=== PATIENT | female | born 1945 | race African-American/Black ===

== ENCOUNTER → 2016-11-30 | Outpatient (CLI) | payer BC, MEDICARE ==
--- NOTE | 2016-11-30 11:33 | RAD ---
DATE: 11/30/2016 EXAM: DIGITAL SCREEN BILAT W/CAD HISTORY: Screening COMPARISON: 09/05/2015 This study was interpreted with the benefit of Computerized Aided Detection (CAD). FINDINGS: Breast Density: SCATTERED The breast parenchyma shows scattered fibroglandular densities. Breast parenchyma level B. There has been little change in the appearance of the breasts compared to the previous exam IMPRESSION: Benign finding BI-RADS CATEGORY: 2 BENIGN FINDING(S) RECOMMENDED FOLLOW-UP: 12M 12 MONTH FOLLOW-UP PQRS compliance statement: Patient information was entered into a reminder system with a target due date 11/30/2017 for the next mammogram. Mammography is a sensitive method for finding small breast cancers, but it does not detect them all and is not a substitute for careful clinical examination. A negative mammogram does not negate a clinically suspicious finding and should not result in delay in biopsying a clinically suspicious abnormality. "Our facility is accredited by the [employer] Mammography [employer]."
== END | disposition home or self-care (01) ==
LOC: MAMMO 11:02
PROVIDERS: ATTEND Internal Medicine
DX: Z12.31 Encounter for screening mammogram for malignant neoplasm of breast (principal)
CPT/HCPCS: G0202; 77067

== ENCOUNTER 2017-07-01 15:32 | Inpatient (IN) | payer MEDICARE, BC ==
[2017-07-01 17:23] LABS: ADD MAN DIFF? NO
[2017-07-01 17:28] LABS: BASO % 1 % (0-3); EOS % 1 % (0-3); HEMATOCRIT 33.9 % (36.0-47.0); LYMPH # 1.1 x10^3/uL (1.0-4.8); LYMPH % 34 % (24-48); MEAN CORPUSCULAR HEMOGLOBIN 28 pg (25-35); MEAN CORPUSCULAR HGB CONC 32 g/dL (31-37); MEAN CORPUSCULAR VOLUME 88 fL (79-100); MONO # 0.3 x10^3/uL (0.0-1.1); MONO % 10 % (0-9); NEUT # 1.7 x10^3uL (1.8-7.7); NEUT % 54 % (31-73); PLATELET COUNT 193 x10^3/uL (140-400); RED BLOOD COUNT 3.86 x10^6/uL (3.50-5.40); RED CELL DISTRIBUTION WIDTH 14.1 % (11.5-14.5); WHITE BLOOD COUNT 3.2 x10^3/uL (4.0-11.0)
[2017-07-01 17:36] LABS: INR 1.2 (0.8-1.1); PROTHROMBIN TIME PATIENT 14.4 SEC (11.7-14.0)
[2017-07-01 17:54] LABS: ALBUMIN 3.2 g/dL (3.4-5.0); ALBUMIN/GLOBULIN RATIO 0.7 (1.0-1.7); ALK PHOS 67 U/L (46-116); ALT (SGPT) 16 U/L (14-59); ANION GAP 8 (6-14); AST (SGOT) 23 U/L (15-37); BLOOD UREA NITROGEN 13 mg/dL (7-20); BUN/CREATININE RATIO 11 (6-20); CALCIUM 9.4 mg/dL (8.5-10.1); CARBON DIOXIDE 27 mmol/L (21-32); CHLORIDE 107 mmol/L (98-107); CREATININE 1.2 mg/dL (0.6-1.0); GFR 53.1; GLUCOSE 80 mg/dL (70-99); POTASSIUM 3.7 mmol/L (3.5-5.1); SODIUM 142 mmol/L (136-145); TOTAL BILIRUBIN 0.5 mg/dL (0.2-1.0); TOTAL PROTEIN 7.6 g/dL (6.4-8.2)
[2017-07-01] MEDS ORDERED: FUROSEMIDE 40 MG TABLET. PO (19:00)
[2017-07-01] MEDS ORDERED: ANTI-COAG MONITOR BY PHARMACY. MC (20:15)
[2017-07-01] MEDS: ASPIRIN CHEWABLE 81 MG TABLET. PO (22:27)
[2017-07-01] MEDS: cloNIDine HCL 0.1 MG TABLET PO (22:27)
[2017-07-01] MEDS: CEPHALEXIN 250 MG CAPSULE. PO (22:28)
[2017-07-02] MEDS ORDERED: NON FORMULARY ITEM (Nifedipine (Nifedipine Er) 90 MG) PO (09:00)
[2017-07-02] MEDS: METOPROLOL SUCC 24HR ER 100 MG TAB.ER.24H. PO (09:00)
[2017-07-02] MEDS: amLODIPine BESYLATE 5 MG TABLET PO (09:18)
[2017-07-02] MEDS: DOXAZOSIN MESYLATE 4 MG TABLET. PO (09:19)
[2017-07-02] MEDS: COLCHICINE 0.6 MG TABLET PO (09:19)
[2017-07-02] MEDS: CEPHALEXIN 250 MG CAPSULE. PO (09:19)
[2017-07-02] MEDS: CHOLECALCIFEROL (VITAMIN D3) 1,000 UNIT TABLET PO (09:20)
[2017-07-02] MEDS: cloNIDine HCL 0.1 MG TABLET PO ×2 (09:20→21:29)
[2017-07-02] MEDS: LOSARTAN POTASSIUM 50 MG TABLET. PO (09:20)
[2017-07-02] MEDS: ASPIRIN CHEWABLE 81 MG TABLET. PO (21:28)
[2017-07-03] MEDS: METOPROLOL SUCC 24HR ER 100 MG TAB.ER.24H. PO (08:54)
[2017-07-03] MEDS: LOSARTAN POTASSIUM 50 MG TABLET. PO (08:55)
[2017-07-03] MEDS: CHOLECALCIFEROL (VITAMIN D3) 1,000 UNIT TABLET PO (08:55)
[2017-07-03] MEDS: cloNIDine HCL 0.1 MG TABLET PO ×2 (08:56→20:55)
[2017-07-03] MEDS: COLCHICINE 0.6 MG TABLET PO (08:56)
[2017-07-03] MEDS: amLODIPine BESYLATE 5 MG TABLET PO (09:00)
[2017-07-03] MEDS ORDERED: hydrALAZINE 25 MG TABLET PO (15:45)
[2017-07-03] MEDS: hydrALAZINE 20 MG/ML VIAL. IVP (15:53)
[2017-07-03] MEDS: ASPIRIN CHEWABLE 81 MG TABLET. PO (20:54)
[2017-07-03] MEDS: DOXAZOSIN MESYLATE 4 MG TABLET. PO (20:55)
[2017-07-04] MEDS: COLCHICINE 0.6 MG TABLET PO (08:50)
[2017-07-04] MEDS: cloNIDine HCL 0.1 MG TABLET PO (08:50)
[2017-07-04] MEDS: LOSARTAN POTASSIUM 50 MG TABLET. PO (08:50)
[2017-07-04] MEDS: METOPROLOL SUCC 24HR ER 100 MG TAB.ER.24H. PO (08:51)
[2017-07-04] MEDS: CHOLECALCIFEROL (VITAMIN D3) 1,000 UNIT TABLET PO (08:51)
[2017-07-04] MEDS: amLODIPine BESYLATE 5 MG TABLET PO (08:51)
[2017-07-04 09:53] LABS: ADD MAN DIFF? NO
[2017-07-04 10:05] LABS: BASO % 1 % (0-3); EOS % 0 % (0-3); HEMATOCRIT 35.8 % (36.0-47.0); HEMOGLOBIN 11.5 g/dL (12.0-15.5); LYMPH # 1.3 x10^3/uL (1.0-4.8); LYMPH % 39 % (24-48); MEAN CORPUSCULAR HEMOGLOBIN 28 pg (25-35); MEAN CORPUSCULAR HGB CONC 32 g/dL (31-37); MEAN CORPUSCULAR VOLUME 88 fL (79-100); MONO # 0.3 x10^3/uL (0.0-1.1); MONO % 9 % (0-9); NEUT # 1.7 x10^3uL (1.8-7.7); NEUT % 51 % (31-73); PLATELET COUNT 218 x10^3/uL (140-400); RED BLOOD COUNT 4.07 x10^6/uL (3.50-5.40); RED CELL DISTRIBUTION WIDTH 14.5 % (11.5-14.5); WHITE BLOOD COUNT 3.3 x10^3/uL (4.0-11.0)
[2017-07-04 10:20] LABS: ANION GAP 12 (6-14); BLOOD UREA NITROGEN 16 mg/dL (7-20); CALCIUM 9.9 mg/dL (8.5-10.1); CARBON DIOXIDE 25 mmol/L (21-32); CHLORIDE 107 mmol/L (98-107); CREATININE 1.2 mg/dL (0.6-1.0); GFR 53.1; GLUCOSE 90 mg/dL (70-99); POTASSIUM 3.6 mmol/L (3.5-5.1); SODIUM 144 mmol/L (136-145)
[2017-07-04] MEDS: FUROSEMIDE 40 MG TABLET. PO (10:38)
[2017-07-04] MEDS ORDERED: APIXABAN 5 MG TABLET. PO ×2 (19:00→20:00)
== END 2017-07-04 13:40 | disposition home or self-care (01) | DRG 300 ==
LOC: 5 SOUTH 15:32
DX: I82.4Z1 Acute embolism and thrombosis of unspecified deep veins of right distal lower extremity (principal); I13.0 Hypertensive heart and chronic kidney disease with heart failure and stage 1 through stage 4 chronic kidney disease, or unspecified chronic kidney disease; I50.9 Heart failure, unspecified; E78.5 Hyperlipidemia, unspecified; I16.0 Hypertensive urgency; M10.9 Gout, unspecified; N18.9 Chronic kidney disease, unspecified; Z82.49 Family history of ischemic heart disease and other diseases of the circulatory system
CPT/HCPCS: 36415; 71046; 71250; 80048; 80053; 85025; 85610; 93005; 93971; J0360; J1650

== ENCOUNTER → 2017-07-01 | Outpatient (CLI) | payer BC | END | disposition home or self-care (01) | LOC: US 13:29 | DX: I82.491 Acute embolism and thrombosis of other specified deep vein of right lower extremity (principal) | CPT/HCPCS: 93971 ==

== ENCOUNTER → 2017-12-07 | Outpatient (CLI) | payer BC, MEDICARE ==
[2017-07-04 10:00] VITALS: BP 139/93
[~2017-12-07] MED LIST: AMLO5TAB7 PO; APIX5TAB PO; ASPI-630 PO; CEPH-264 PO; CHOL10003 PO; CLON0.1T PO; COLC0.6T34 PO; DOXA8TAB59 PO; FURO40TA4 PO; METO-247 PO; NIFE30TA15 PO; VALS320T2 PO
--- NOTE | 2017-12-07 15:58 | RAD ---
DATE: 12/07/2017 EXAM: MAMMO PASCUAL SCREENING BILATERAL HISTORY: Routine screening COMPARISON: 11/30/2016 This study was interpreted with the benefit of Computerized Aided Detection (CAD). Breast Density: SCATTERED The breast parenchyma shows scattered fibroglandular densities. Breast parenchyma level B. FINDINGS: 2-D and 3-D tomosynthesis imaging was performed in CC and MLO projections. No new or enlarging breast densities are seen. Benign type calcifications are present. No suspicious microcalcifications have developed. IMPRESSION: Stable mammograms without evidence of malignancy. BI-RADS CATEGORY: 2 BENIGN FINDING(S) RECOMMENDED FOLLOW-UP: 12M 12 MONTH FOLLOW-UP PQRS compliance statement: Patient information was entered into a reminder system with a target due date for the next mammogram. Mammography is a sensitive method for finding small breast cancers, but it does not detect them all and is not a substitute for careful clinical examination. A negative mammogram does not negate a clinically suspicious finding and should not result in delay in biopsying a clinically suspicious abnormality. "Our facility is accredited by the [employer] Mammography [employer]."
== END | disposition home or self-care (01) ==
LOC: MAMMO 14:07
PROVIDERS: ATTEND Internal Medicine
DX: Z12.31 Encounter for screening mammogram for malignant neoplasm of breast (principal); I13.0 Hypertensive heart and chronic kidney disease with heart failure and stage 1 through stage 4 chronic kidney disease, or unspecified chronic kidney disease; I50.9 Heart failure, unspecified; N18.4 Chronic kidney disease, stage 4 (severe); E78.5 Hyperlipidemia, unspecified; M10.9 Gout, unspecified; Z82.49 Family history of ischemic heart disease and other diseases of the circulatory system
CPT/HCPCS: 77063; 77067

== ENCOUNTER → 2018-01-04 | Outpatient (CLI) | payer BC, MEDICARE ==
[2017-07-04 10:00] VITALS: BP 139/93
--- NOTE | 2018-01-04 13:31 | RAD ---
EXAM: Right lower extremity venous Doppler sonogram. HISTORY: DVT. TECHNIQUE: Pineda scale and color Doppler sonographic evaluation of the right lower extremity veins with spectral waveform analysis was performed. FINDINGS: There is nonocclusive thrombus within the right common femoral, superficial femoral, popliteal and posterior tibial veins. The greater saphenous vein is patent. IMPRESSION: Nonocclusive right lower extremity deep venous thrombosis. This was described on a prior study dated 07/01/2017. The previously demonstrated superficial venous most involving the greater saphenous vein is no longer seen. Electronically signed by: Danika Barr MD (01/04/2018 1:28 PM) [place] [id number]
== END | disposition home or self-care (01) ==
LOC: US 12:53
PROVIDERS: ATTEND Internal Medicine
DX: I82.401 Acute embolism and thrombosis of unspecified deep veins of right lower extremity (principal)
CPT/HCPCS: 93971

== ENCOUNTER 2018-05-26 17:55 | Emergency (ER) | payer BC ==
[~2018-05-26] VITALS: Ht 157.5 cm; Wt 80.7 kg
[~2018-05-26 17:55] MED LIST changes: +AMLO5TAB10 PO; -AMLO5TAB7 PO
[2018-05-26 19:17] VITALS: BP 213/98
--- NOTE | 2018-05-26 20:55 | RAD ---
Clinical indications: Right upper extremity pain. History of right leg DVT in December 2017. Findings: Duplex sonography (including mendoza scale evaluation and color flow and waveform spectral analysis) of the inferior aspect of the right internal jugular vein was performed. Duplex sonography (including mendoza scale evaluation and color flow and waveform spectral analysis) of the right subclavian vein as far as it could be visualized prior to it's descent underneath the medial aspect of the clavicle was performed. Duplex sonography (including mendoza scale evaluation and color flow and waveform spectral analysis) of the right axillary, brachial, basilic, cephalic, ulnar and radial veins was performed. Normal compressibility and augmentation of color Doppler flow after forearm compression is seen. Color-flow completely fills the lumen of these veins. Therefore, there are no sonographic findings of deep venous thrombosis within these veins. Impression: There are no sonographic findings of deep venous thrombosis within the veins discussed above of the right upper extremity. Electronically signed by: Preston Banerjee MD (05/26/2018 8:53 PM) [facility]
--- NOTE | 2018-05-26 21:39 | PHYS DOC ---
Past Medical History Past Medical History: DVT, Hypertension (MARLA SALVADOR APRN) Past Surgical History: Hysterectomy Additional Past Surgical Histo: CARPAL TUNNEL (MARLA SALVADOR APRN) Adult General Chief Complaint Chief Complaint: UPPER EXTREMITY PAIN HPI HPI Patient is a 73 year old female who presents with pain in her right shoulder. She states she has a history of blood clots and is worried she might have formed one. She states the pain is worse with movement. (MARLA SALVADOR APRN) Review of Systems Review of Systems Constitutional: Denies fever or chills [] Respiratory: Denies cough or shortness of breath [] Cardiovascular: No additional information not addressed in HPI [] GI: Denies abdominal pain, nausea, vomiting, bloody stools or diarrhea [] : Denies dysuria or hematuria [] Musculoskeletal: See HPI Integument: Denies rash or skin lesions [] Neurologic: Denies headache, focal weakness or sensory changes [] Endocrine: Denies polyuria or polydipsia [] All other systems were reviewed and found to be within normal limits, except as documented in this note. (MARLA SALVADOR APRN) Allergies Allergies Allergies Coded Allergies Type Severity Reaction Last Updated Verified Sulfa (Sulfonamide Antibiotics) Allergy Severe 07/01/17 Yes (ALLI ENGLISH MD) Physical Exam Physical Exam Constitutional: Well developed, well nourished, no acute distress, non-toxic appearance. [] Cardiovascular:Heart rate regular rhythm, no murmur [] Lungs & Thorax: Bilateral breath sounds clear to auscultation [] Abdomen: Bowel sounds normal, soft, no tenderness, no masses, no pulsatile masses. [] Skin: Warm, dry, no erythema, no rash. [] Back: No tenderness, no CVA tenderness. [] Extremities: tenderness to shoulder with movement, no discoloration of arm, pulses and sensation are intact distally, no cyanosis, no clubbing, ROM intact, no edema. [] Neurologic: Alert and oriented X 3, normal motor function, normal sensory function, no focal deficits noted. [] Psychologic: Affect normal, judgement normal, mood normal. [] (MARLA SALVADOR APRN) EKG EKG [] (MARLA SALVADOR APRN) Radiology/Procedures Radiology/Procedures [][facility] [address] [place] [address] IMAGING REPORT Signed PATIENT: DION TALAVERA ACCOUNT: [id number] : 1945 LOCATION: ER AGE: 73 SEX: F EXAM STATUS: REG ER ORD. PHYSICIAN: MARLA SALVADOR APRN REASON: RUE PAIN, HX OF DVT RT LEG DEC 2017 PROCEDURE: VENOUS UPPER EXTREMITY RIGHT Clinical indications: Right upper extremity pain. History of right leg DVT in December 2017. Findings: Duplex sonography (including mendoza scale evaluation and color flow and waveform spectral analysis) of the inferior aspect of the right internal jugular vein was performed. Duplex sonography (including mendoza scale evaluation and color flow and waveform spectral analysis) of the right subclavian vein as far as it could be visualized prior to it's descent underneath the medial aspect of the clavicle was performed. Duplex sonography (including mendoza scale evaluation and color flow and waveform spectral analysis) of the right axillary, brachial, basilic, cephalic, ulnar and radial veins was performed. Normal compressibility and augmentation of color Doppler flow after forearm compression is seen. Color-flow completely fills the lumen of these veins. Therefore, there are no sonographic findings of deep venous thrombosis within these veins. Impression: There are no sonographic findings of deep venous thrombosis within the veins discussed above of the right upper extremity. Electronically signed by: Korey Banerjee MD (05/26/2018 8:53 PM) [facility] DICTATED and SIGNED BY: KOREY BANERJEE MD DATE: 05/26/182052 [facility] [address] [place] [address] IMAGING REPORT Signed PATIENT: DION TALAVERA ACCOUNT: [id number] : 1945 LOCATION: ER AGE: 73 SEX: F EXAM STATUS: DEP ER ORD. PHYSICIAN: MARLA SALVADOR APRN REASON: worsening pain PROCEDURE: SHOULDER 2+V RIGHT Three-view right shoulder dated 05/26/2018. No comparison available. Clinical indication: Pain. FINDINGS: 3 views right shoulder show normal bony alignment. No displaced fracture. There are small corticated bone fragments along the lateral margin of the humeral head. Mild degenerative change at the AC joint mild degenerative change of the glenohumeral joint. IMPRESSION: 1. No acute radiographic abnormality. 2. Degenerative changes as described above. 3. Small bone fragments along the lateral margin of the humeral head could be related to calcific tendinosis or calcific bursitis. Electronically signed by: Tino Oseguera MD (05/27/2018 1:24 AM) [facility] [place] DICTATED and SIGNED BY: TINO OSEGUERA MD DATE: 05/27/18 0124 (MARLA SALVADOR APRN) Course & Med Decision Making Course & Med Decision Making Pertinent Labs and Imaging studies reviewed. (See chart for details) []The patient is negative for a DVT. She does have arthritis. (MARLA SALVADOR APRN) Course & Med Decision Making Staff Physician Addendum: I was working in the ER during the course of this patient's visit. I was available for consultation as needed, but I was not directly involved in the care of this patient. (ALLI ENGLISH MD) Dragon Disclaimer Dragon Disclaimer This electronic medical record was generated, in whole or in part, using a voice recognition dictation system. (MARLA SALVADOR APRN) Departure Departure Impression: Primary Impression: Arthritis pain of shoulder Disposition: HOME, SELF-CARE Condition: STABLE Referrals: SEVEN GONZALEZ MD (PCP) Patient Instructions: Arthritis, Degenerative-Brief Additional Instructions: You may use ibuprofen or Tylenol for pain. Biofreeze or icy hot patches will help with pain as well. Follow-up with your primary care provider in 3 days if not improving or return to the emergency department if worsening. MARLA SALVADOR APRN May 26, 2018 21:39 ALLI ENGLISH MD Aug 20, 2018 18:13
--- NOTE | 2018-05-27 01:27 | RAD ---
Three-view right shoulder dated 05/26/2018. No comparison available. Clinical indication: Pain. FINDINGS: 3 views right shoulder show normal bony alignment. No displaced fracture. There are small corticated bone fragments along the lateral margin of the humeral head. Mild degenerative change at the AC joint mild degenerative change of the glenohumeral joint. IMPRESSION: 1. No acute radiographic abnormality. 2. Degenerative changes as described above. 3. Small bone fragments along the lateral margin of the humeral head could be related to calcific tendinosis or calcific bursitis. Electronically signed by: Tino Oseguera MD (05/27/2018 1:24 AM) [facility]
== END 2018-05-26 22:05 | disposition home or self-care (01) ==
LOC: ER 17:55
DX: M19.011 Primary osteoarthritis, right shoulder (principal); M79.641 Pain in right hand; I10 Essential (primary) hypertension; Z90.710 Acquired absence of both cervix and uterus; Z86.718 Personal history of other venous thrombosis and embolism; Z88.2 Allergy status to sulfonamides
CPT/HCPCS: 73030; 93971; 99284

== ENCOUNTER 2020-01-16 17:39 | Inpatient (IN) | payer MEDICARE, BC ==
[~2020-01-16] VITALS: Ht 157.5 cm; Wt 61.1 kg
[~2020-01-16 17:39] MED LIST changes: +AMLO-186 PO; -AMLO5TAB10 PO
[2020-01-16 18:19] LABS: BASO % 1 % (0-3); EOS % 0 % (0-3); HEMATOCRIT 37.1 % (36.0-47.0); HEMOGLOBIN 12.1 g/dL (12.0-15.5); LYMPH # 0.8 x10^3/uL (1.0-4.8); LYMPH % 32 % (24-48); MEAN CORPUSCULAR HEMOGLOBIN 29 pg (25-35); MEAN CORPUSCULAR HGB CONC 33 g/dL (31-37); MEAN CORPUSCULAR VOLUME 88 fL (79-100); MONO # 0.2 x10^3/uL (0.0-1.1); MONO % 8 % (0-9); NEUT # 1.4 x10^3/uL (1.8-7.7); NEUT % 59 % (31-73); PLATELET COUNT 96 x10^3/uL (140-400); RED BLOOD COUNT 4.23 x10^6/uL (3.50-5.40); RED CELL DISTRIBUTION WIDTH 14.6 % (11.5-14.5); WHITE BLOOD COUNT 2.5 x10^3/uL (4.0-11.0)
[2020-01-16 18:29] LABS: CALCIUM 10.2 mg/dL (8.5-10.1); CREATININE 3.4 mg/dL (0.6-1.0); GFR 15.9; POTASSIUM 4.6 mmol/L (3.5-5.1)
[2020-01-16] MEDS ORDERED: IV NORMAL SALINE 1000ML BAG 1,000 ML IV ONE (18:30)
[2020-01-16 18:35] LABS: ALBUMIN 3.5 g/dL (3.4-5.0); ALBUMIN/GLOBULIN RATIO 0.8 (1.0-1.7); TOTAL BILIRUBIN 0.6 mg/dL (0.2-1.0)
--- NOTE | 2020-01-16 18:58 | PHYS DOC ---
Past Medical History Past Medical History: DVT, Hypertension, Renal Disease Past Surgical History: Hysterectomy Additional Past Surgical Histo: CARPAL TUNNEL Smoking Status: Never Smoker Alcohol Use: None General Adult EDM: Chief Complaint: ABNORMAL LABS HPI: HPI: Patient is a 74 year old female presents for evaluation of abnormal labs. Patient had outpatient labs by her primary care physician sent to the emergency department due to low white blood cell count elevated creatinine and elevated uric acid. Patient states over the 2 weeks she has become progressively weaker. States she has had a decreased appetite and lost weight. Patient also states 6 months ago her blood pressure medications were changed and since she has had episodes of hypotension-- 70/80-systolic with associated di zziness. Patients blood pressure in triage was 84/56. Patient denies any chest pain shortness of breath or cough. States over the last month she has had sinus congestion with post nasal drip. Patient presented to the ER by private vehicle she is alert and oriented x4. Review of Systems: Review of Systems: Constitutional: Denies fever or chills. [] Eyes: Denies change in visual acuity. [] HENT: Denies nasal congestion or sore throat. [] Respiratory: Denies cough or shortness of breath. [] Cardiovascular: Denies chest pain or edema. [] GI: Denies abdominal pain, nausea, vomiting, bloody stools or diarrhea. [] : Denies dysuria. [] Musculoskeletal: Denies back pain or joint pain. [] Integument: Denies rash. [] Neurologic: Denies headache, focal weakness or sensory changes. [] Endocrine: Denies polyuria or polydipsia. [] Lymphatic: Denies swollen glands. [] Psychiatric: Denies depression or anxiety. [] Heart Score: Risk Factors: Risk Factors: DM, Current or recent (<one month) smoker, HTN, HLP, family history of CAD, obesity. Risk Scores: Score 0 - 3: 2.5% MACE over next 6 weeks - Discharge Home Score 4 - 6: 20.3% MACE over next 6 weeks - Admit for Clinical Observation Score 7 - 10: 72.7% MACE over next 6 weeks - Early Invasive Strategies Current Medications: Current Medications Medications (Trade) Dose Ordered Sig/Jordon Start Time Stop Time Status Last Admin Dose Admin Sodium Chloride 1,000 ml @ 1,000 mls/hr 1X ONCE 01/16/20 18:30 01/16/20 19:29 01/16/20 18:23 1,000 MLS/HR Allergies: Allergies: Allergies Coded Allergies Type Severity Reaction Last Updated Verified Sulfa (Sulfonamide Antibiotics) Allergy Severe 07/01/17 Yes Physical Exam: PE: Constitutional: Well developed, well nourished, no acute distress, non-toxic appearance. [] HENT: Normocephalic, atraumatic, bilateral external ears normal, oropharynx moist, no oral exudates, nose normal. [] Eyes: PERRLA, EOMI, conjunctiva normal, no discharge. [] Neck: Normal range of motion, no tenderness, supple, no stridor. [] Cardiovascular:Heart rate regular rhythm, no murmur [] Lungs & Thorax: Bilateral breath sounds clear to auscultation [] Abdomen: Bowel sounds normal, soft, no tenderness, no masses, no pulsatile masses. [] Skin: Warm, dry, no erythema, no rash. [] Back: No tenderness, no CVA tenderness. [] Extremities: No tenderness, no cyanosis, no clubbing, ROM intact, no edema. [] Neurologic: Alert and oriented X 3, normal motor function, normal sensory function, no focal deficits noted. [] Psychologic: Affect normal, judgement normal, mood normal. [] Current Patient Data: Labs: Laboratory Tests Test 01/16/20 18:00 White Blood Count 2.5 x10^3/uL (4.0-11.0) L Red Blood Count 4.23 x10^6/uL (3.50-5.40) Hemoglobin 12.1 g/dL (12.0-15.5) Hematocrit 37.1 % (36.0-47.0) Mean Corpuscular Volume 88 fL (79-100) Mean Corpuscular Hemoglobin 29 pg (25-35) Mean Corpuscular Hemoglobin Concent 33 g/dL (31-37) Red Cell Distribution Width 14.6 % (11.5-14.5) H Platelet Count 96 x10^3/uL (140-400) L Neutrophils (%) (Auto) 59 % (31-73) Lymphocytes (%) (Auto) 32 % (24-48) Monocytes (%) (Auto) 8 % (0-9) Eosinophils (%) (Auto) 0 % (0-3) Basophils (%) (Auto) 1 % (0-3) Neutrophils # (Auto) 1.4 x10^3/uL (1.8-7.7) L Lymphocytes # (Auto) 0.8 x10^3/uL (1.0-4.8) L Monocytes # (Auto) 0.2 x10^3/uL (0.0-1.1) Eosinophils # (Auto) 0.0 x10^3/uL (0.0-0.7) Basophils # (Auto) 0.0 x10^3/uL (0.0-0.2) Sodium Level 136 mmol/L (136-145) Potassium Level 4.6 mmol/L (3.5-5.1) Chloride Level 101 mmol/L (98-107) Carbon Dioxide Level 18 mmol/L (21-32) L Anion Gap 17 (6-14) H Blood Urea Nitrogen 52 mg/dL (7-20) H Creatinine 3.4 mg/dL (0.6-1.0) H Estimated GFR (Cockcroft-Gault) 15.9 BUN/Creatinine Ratio 15 (6-20) Glucose Level 105 mg/dL (70-99) H Calcium Level 10.2 mg/dL (8.5-10.1) H Total Bilirubin 0.6 mg/dL (0.2-1.0) Aspartate Amino Transferase (AST) 74 U/L (15-37) H Alanine Aminotransferase (ALT) 53 U/L (14-59) Alkaline Phosphatase 116 U/L (46-116) Troponin I Quantitative < 0.017 ng/mL (0.000-0.055) Total Protein 8.0 g/dL (6.4-8.2) Albumin 3.5 g/dL (3.4-5.0) Albumin/Globulin Ratio 0.8 (1.0-1.7) L Laboratory Tests 01/16/20 18:00 Laboratory Tests 01/16/20 18:00 Vital Signs: Vital Signs Date Time Temp Pulse Resp B/P (MAP) Pulse Ox O2 Delivery O2 Flow Rate FiO2 01/16/20 18:00 98.0 67 20 84/56 (65) 94 Room Air 98.0 EKG: EKG: [] Radiology/Procedures: Radiology/Procedures: [] Course & Med Decision Making: Course & Med Decision Making Pertinent Labs and Imaging studies reviewed. (See chart for details) [] Dragon Disclaimer: Dragon Disclaimer: This electronic medical record was generated, in whole or in part, using a voice recognition dictation system. Departure Departure Referrals: SEVEN GONZALEZ MD (PCP) STELLA PERKINS DO Jan 16, 2020 18:58
--- NOTE | 2020-01-16 19:44 | RAD ---
CHEST AP ONLY Clinical History: Reason: gen weakness / Spl. Instructions: / History: Technique: AP view of the chest was obtained at 01/16/2020 7:22 PM. Comparison: July 01, 2017. Findings: The heart is mildly enlarged. The pulmonary vasculature is normal. The lungs and pleural margins are clear. Impression: Mild cardiomegaly. Stable appearance of the chest. Electronically signed by: Cj Mojica III, MD (01/16/2020 7:41 PM) [facility]
[2020-01-16 21:24] LABS: BILIRUBIN,URINE MODERATE (NEG); CLARITY,URINE CLEAR; COLOR,URINE YELLOW; NITRITE,URINE NEGATIVE (NEG); PROTEIN,URINE 30 mg/dL (NEG-TRACE); UROBILINOGEN,URINE 0.2 mg/dL (0.2 mg/dL)
[2020-01-16 21:32] LABS: AMORPHOUS SEDIMENT,UR PRESENT /HPF; BACTERIA,URINE MODERATE /HPF (0-FEW); HYALINE CASTS, URINE MODERATE /HPF; RBC,URINE 0 /HPF (0-2)
[2020-01-16 22:50] VITALS: BP 135/73
[2020-01-16] MEDS ORDERED: HYDR-2868 PO (23:26)
[2020-01-17 03:00] VITALS: BP 137/75
[2020-01-17 07:00] VITALS: BP 105/63
[2020-01-17] MEDS ORDERED: ANTI-COAG MONITOR BY PHARMACY. MC PRN (09:00)
[2020-01-17] MEDS ORDERED: METOPROLOL SUCC 24HR ER 100 MG TAB.ER.24H. PO SCH (09:00)
[2020-01-17] MEDS: IV NORMAL SALINE 1000ML BAG 1,000 ML IV SCH ×2 (09:30→21:07)
--- NOTE | 2020-01-17 09:42 | PDOC ---
Provider Note Date of Service: DATE: 01/17/20 TIME: 09:41 Provider Note H&P dictated #[id number] Justifications for Admission Other Justification SEVEN GONZALEZ MD Jan 17, 2020 09:42
[2020-01-17] MEDS: APIXABAN 5 MG TABLET. PO SCH ×2 (10:27→21:07)
--- NOTE | 2020-01-17 10:27 | HP ---
ADMIT DATE: 01/17/2020 HISTORY OF PRESENT ILLNESS: This 74 years old female, who is well known to me, saw me in the office on 12/27/2019. She has a history of leukopenia, hypertension with chronic kidney disease stage 2, gout. She came to the office for followup and she had recently a dental surgery and had a wisdom tooth removed. She was noted to have lost 29 pounds in about 8 months. However, she stated that most of the weight loss was in the last few weeks and her weight loss was out of proportion to her dental surgery. She had colonoscopy about 5 years ago. Labs were ordered. Her baseline creatinine is from 1.2-1.3 and the creatinine increased to 1.64. She is on multiple blood pressure medications. She was supposed to follow up in a couple of weeks, but she has continued to get weaker. She has lost 15 more pounds to make a total of 45 pounds in last 8 months, but most of it in last few weeks. She has not been eating well. Now, she is starting to get diarrhea. She denies any nausea, vomiting, fever or chills. She does have some congestion and a bad taste in mouth. Mucus is clear. She denies any fever. Because of her multiple medical problems, including weight loss, acute renal failure with creatinine increasing to 3.4 and BUN increasing to 52 from around 22, it was decided to go ahead and admit the patient for further evaluation and management. She was given IV fluids in the Emergency Room. Her WBC count is 2.5, which is the same as the one in the office. Her white count ranges from 2.5-3.5. She has a history of chronic leukopenia. Because of the acute renal failure with chronic kidney disease, weight loss of 45 pounds, most of it in last few weeks, inability to eat much and diarrhea, likely due to colchicine now and profound weakness, the patient was admitted for further evaluation and management. REVIEW OF SYSTEMS: As noted earlier, the patient has decreased appetite, bad taste in mouth, weight loss, cough with clear mucus, fatigue and not feeling well. She denies any fever or chills, nausea or vomiting. She does admit to diarrhea. Other systems reviewed and are negative. PAST MEDICAL HISTORY: The patient has a history of hypertension. She is on multiple blood pressure medications. Chronic kidney disease stage 2, history of dermatitis, leukopenia, history of lupus in 01/2015, leukopenia since 2009 or even earlier, had DVT of the right lower extremity and started on Eliquis in 06/2017, continues to be on anticoagulation, gastritis, gastroesophageal reflux disease. SHE HAD HEPATITIS THAT WAS DUE TO REACTION FROM SULFA ANTIBIOTICS, that she took maybe 30 years ago for chronic UTI. She has a history of hypertension and pancreatitis. PAST SURGICAL HISTORY: Includes kidney biopsy, has carpal tunnel release, hysterectomy. FAMILY HISTORY: Father and mother have hypertension. SOCIAL HISTORY: No history of smoking, alcoholism or drug abuse. MEDICATIONS: Reviewed and reconciled. She is on multiple medications, including Eliquis, aspirin, Cardura, losartan, Toprol, hydralazine, furosemide, Colcrys, clonidine, amlodipine. PHYSICAL EXAMINATION: VITAL SIGNS: Temperature 97.4, pulse 52 per minute, respirations 17 per minute. GENERAL: The patient is an elderly -Indian female, who is alert, oriented, chronically ill and not in any acute distress. EYES: Pupils reacting to light. Conjunctivae pale. Sclerae muddy. HEENT: Unremarkable. NECK: Supple. JVP normal. No thyromegaly. LUNGS: Decreased breath sounds at bases. CARDIOVASCULAR: S1, S2 regular. ABDOMEN: Soft, nontender. No guarding. No rigidity. Bowel sounds present. EXTREMITIES: Trace edema. CENTRAL NERVOUS SYSTEM: Alert and oriented, generalized weakness. LABORATORY FINDINGS: Sodium 136, potassium 4.6, BUN 52, CO2 of 18, creatinine 3.4, glucose 105, calcium 10.2, BNP 1412. Troponin less than 0.017. Uric acid 13.9. Albumin 3.5. WBC count 2.5; hemoglobin 12.1; platelet count is 96,000. Urinalysis: Moderate bilirubin, negative nitrite, bacteria moderate. Chest x-ray shows mild cardiomegaly. No other acute changes. IMPRESSION: 1. Acute kidney injury with chronic kidney disease 2. 2. Leukopenia. 3. Weight loss. 4. Diarrhea. 5. Benign hypertension with chronic kidney disease 2. 6. Bradycardia. 7. Physical deconditioning. 8. Osteoarthritis. PLAN: 1. Acute kidney injury. Consult Dr. Corona for Nephrology evaluation and management. Start IV. The patient was given IV bolus in the ER. I will start her on IV normal saline. Give her fluids cautiously as she has a history of hypertension and also has some swelling of the legs. She has chronic lower extremity swelling. 2. Leukopenia. This is chronic leukopenia, but she is also starting to have thrombocytopenia and leukopenia is also gradually getting worse. Consult Dr. Schilling for Hematology evaluation and management. 3. Weight loss, about 45 pounds, especially most of it in last few weeks. Consult Dr. Dong for GI evaluation and management. 4. Diarrhea. This may be due to her weight loss with her being on colchicine. Discontinue colchicine. 5. Gout. Uric acid 13.9. This may be worse due to her renal insufficiency. We will monitor. 6. Physical deconditioning. Continue to monitor. 7. Continue IV fluids, recheck labs in a.m. COVID-19 test is pending. I will hold most of the blood pressure medications because of the low blood pressure, acute renal failure and also bradycardia. For details, please refer to the orders. SEVEN GONZALEZ MD DR: ROSS/jackson JOB#: [id number] / [id number]
[2020-01-17] MEDS: CHOLECALCIFEROL (VITAMIN D3) 1,000 UNIT TABLET PO SCH (10:28)
[2020-01-17 11:00] VITALS: BP 109/62
[2020-01-17 11:10] LABS: BASO % 0 % (0-3); EOS % 1 % (0-3); HEMOGLOBIN 11.1 g/dL (12.0-15.5); LYMPH # 0.8 x10^3/uL (1.0-4.8); LYMPH % 33 % (24-48); MEAN CORPUSCULAR HEMOGLOBIN 28 pg (25-35); MEAN CORPUSCULAR HGB CONC 33 g/dL (31-37); MEAN CORPUSCULAR VOLUME 87 fL (79-100); MONO # 0.3 x10^3/uL (0.0-1.1); MONO % 13 % (0-9); NEUT # 1.3 x10^3/uL (1.8-7.7); NEUT % 53 % (31-73); PLATELET COUNT 93 x10^3/uL (140-400); RED CELL DISTRIBUTION WIDTH 14.7 % (11.5-14.5); WHITE BLOOD COUNT 2.5 x10^3/uL (4.0-11.0)
[2020-01-17 11:40] LABS: ALBUMIN 3.1 g/dL (3.4-5.0); ALBUMIN/GLOBULIN RATIO 0.8 (1.0-1.7); CALCIUM 9.5 mg/dL (8.5-10.1); CREATININE 2.5 mg/dL (0.6-1.0); GFR 22.7; MAGNESIUM 2.2 mg/dL (1.8-2.4); TOTAL BILIRUBIN 0.5 mg/dL (0.2-1.0); TOTAL PROTEIN 7.2 g/dL (6.4-8.2)
--- NOTE | 2020-01-17 12:05 | PDOC2 ---
CONSULT Date of Consult Date of Consult DATE: 01/17/20 TIME: 11:55 Reason for Consult Reason for Consult: HARSHIL Referring Physician Referring Physician: LISA Source Source: Chart review, Patient History of Present Illness Reason for Visit: THIS IS A 74 YR OLD WITH WT LOSS ABOUT 30 POUNDS IN THE LAST 6 MONTHS OR SO. COMPLAINED OF GENERALIZED WEAKNESS AND POOR APPETITE AND STARTED TO HAVE DIARRHEA WELL. OP LABS SHOWED WORSENING RENAL FXN. BASELINE CR IS 1.3. CR NOW UP TO 3.4. HAS HX OF GOUT AND HAS AN URIC ACID LEVEL OF 13.9. HAS STAGE 2 CKD. EVALUATION ONGOING AT THIS TIME. STATES SHE TAKES ALL HER MEDS. NO OTHER HX. ALL HER BP MEDS ON HOLD NOW DUE TO LOW BP Past Medical History Past Medical History LEUKOPENIA Cardiovascular: HTN Pulmonary: Other (DVT) Rheumatologic: Gout Renal/: Chronic renal insuff Family History Family History: Hypertension Social History No ALCOHOL: rare Drugs: None Lives: with Family Current Medications Current Medications Current Medications Sodium Chloride 1,000 ml @ 1,000 mls/hr 1X ONCE IV Last administered on 01/16/20at 18:23; Start 01/16/20 at 18:30; Stop 01/16/20 at 19:29; Status DC Aspirin (Aspirin Chewable) 81 mg HS PO ; Start 01/17/20 at 21:00 Vitamin D (Vitamin D3) 1,000 unit DAILY PO Last administered on 01/17/20at 10:28; Start 01/17/20 at 09:00 Metoprolol Succinate (Toprol Xl) 100 mg DAILY PO ; Start 01/17/20 at 09:00; Stop 01/17/20 at 09:37; Status DC Apixaban (Eliquis) 5 mg BID PO Last administered on 01/17/20at 10:27; Start 01/17/20 at 09:00 Info (Anti-Coagulation Monitoring By Pharmacy) 1 each PRN DAILY PRN MC SEE COMMENTS; Start 01/17/20 at 09:00 Sodium Chloride 1,000 ml @ 80 mls/hr [id number] IV Last administered on 01/17/20at 09:30; Start 01/17/20 at 09:30 Active Scripts Active Eliquis (Apixaban) 5 Mg Tablet 5 Mg PO BID Begin on 07/12 Eliquis (Apixaban) 5 Mg Tablet 10 Mg PO BID 7 Days Reported Hydralazine Hcl 25 Mg Tablet 1 Tab PO TID Furosemide 40 Mg Tablet 1 Tab PO PRN DAILY PRN Aspirin 81 Mg Tab.chew 1 Tab PO HS Vitamin D3 (Cholecalciferol (Vitamin D3)) 1,000 Unit Tablet 1 Tab PO DAILY Colcrys (Colchicine) 0.6 Mg Tablet 1 Tab PO BID Amlodipine Besylate 5 Mg Tablet 10 Mg PO DAILY Diovan (Valsartan) 320 Mg Tablet 320 Mg PO DAILY Metoprolol Succinate ( Xl ) (Metoprolol Succinate) 100 Mg Tab.er.24h 1 Tab PO DAILY Doxazosin Mesylate 8 Mg Tablet 1 Tab PO DAILY Clonidine Hcl 0.1 Mg Tablet 0.1 Mg PO BID Allergies Allergies: Coded Allergies: Sulfa (Sulfonamide Antibiotics) (Verified Allergy, Severe, 07/01/17) ROS General: YES: Fatigue, Malaise, Appetite PSYCHOLOGICAL ROS: YES: Anxiety Eyes: Yes Decreased vision Respiratory: YES: Cough Gastrointestinal: Yes Nausea, Yes Diarrhea Genitourinary: YES Other (DECREASED UO) Musculoskeletal: Yes Muscular Weakness Neurological: Yes Weakness Skin: Yes Dry Skin Physical Exam General: Alert, Cooperative, No acute distress HEENT: Atraumatic, PERRLA Lungs: Clear to auscultation Heart: Regular rate Abdomen: Normal bowel sounds, Soft, No tenderness Extremities: No clubbing Skin: No breakdown Neuro: Normal speech Psych/Mental Status: Mental status NL, Mood NL MUSCULOSKELETAL: No joint tenderness, No deformity Vitals VITALS Vital Signs Date Time Temp Pulse Resp B/P (MAP) Pulse Ox O2 Delivery O2 Flow Rate FiO2 01/17/20 11:00 97.7 56 17 109/62 (78) 100 Room Air 97.7 Labs Labs Laboratory Tests Test 01/16/20 18:00 01/16/20 21:10 01/17/20 10:30 White Blood Count 2.5 x10^3/uL (4.0-11.0) 2.5 x10^3/uL (4.0-11.0) Red Blood Count 4.23 x10^6/uL (3.50-5.40) 3.90 x10^6/uL (3.50-5.40) Hemoglobin 12.1 g/dL (12.0-15.5) 11.1 g/dL (12.0-15.5) Hematocrit 37.1 % (36.0-47.0) 34.0 % (36.0-47.0) Mean Corpuscular Volume 88 fL (79-100) 87 fL (79-100) Mean Corpuscular Hemoglobin 29 pg (25-35) 28 pg (25-35) Mean Corpuscular Hemoglobin Concent 33 g/dL (31-37) 33 g/dL (31-37) Red Cell Distribution Width 14.6 % (11.5-14.5) 14.7 % (11.5-14.5) Platelet Count 96 x10^3/uL (140-400) 93 x10^3/uL (140-400) Neutrophils (%) (Auto) 59 % (31-73) 53 % (31-73) Lymphocytes (%) (Auto) 32 % (24-48) 33 % (24-48) Monocytes (%) (Auto) 8 % (0-9) 13 % (0-9) Eosinophils (%) (Auto) 0 % (0-3) 1 % (0-3) Basophils (%) (Auto) 1 % (0-3) 0 % (0-3) Neutrophils # (Auto) 1.4 x10^3/uL (1.8-7.7) 1.3 x10^3/uL (1.8-7.7) Lymphocytes # (Auto) 0.8 x10^3/uL (1.0-4.8) 0.8 x10^3/uL (1.0-4.8) Monocytes # (Auto) 0.2 x10^3/uL (0.0-1.1) 0.3 x10^3/uL (0.0-1.1) Eosinophils # (Auto) 0.0 x10^3/uL (0.0-0.7) 0.0 x10^3/uL (0.0-0.7) Basophils # (Auto) 0.0 x10^3/uL (0.0-0.2) 0.0 x10^3/uL (0.0-0.2) Sodium Level 136 mmol/L (136-145) 140 mmol/L (136-145) Potassium Level 4.6 mmol/L (3.5-5.1) 4.0 mmol/L (3.5-5.1) Chloride Level 101 mmol/L (98-107) 106 mmol/L (98-107) Carbon Dioxide Level 18 mmol/L (21-32) 16 mmol/L (21-32) Anion Gap 17 (6-14) 18 (6-14) Blood Urea Nitrogen 52 mg/dL (7-20) 51 mg/dL (7-20) Creatinine 3.4 mg/dL (0.6-1.0) 2.5 mg/dL (0.6-1.0) Estimated GFR (Cockcroft-Gault) 15.9 22.7 BUN/Creatinine Ratio 15 (6-20) 20 (6-20) Glucose Level 105 mg/dL (70-99) 69 mg/dL (70-99) Uric Acid 13.9 mg/dL (2.6-6.0) Calcium Level 10.2 mg/dL (8.5-10.1) 9.5 mg/dL (8.5-10.1) Total Bilirubin 0.6 mg/dL (0.2-1.0) 0.5 mg/dL (0.2-1.0) Aspartate Amino Transf (AST/SGOT) 74 U/L (15-37) 67 U/L (15-37) Alanine Aminotransferase (ALT/SGPT) 53 U/L (14-59) 51 U/L (14-59) Alkaline Phosphatase 116 U/L (46-116) 103 U/L (46-116) Troponin I Quantitative < 0.017 ng/mL (0.000-0.055) FA-Ntc-U-Type Natriuretic Peptide 1412 pg/mL (0-449) Total Protein 8.0 g/dL (6.4-8.2) 7.2 g/dL (6.4-8.2) Albumin 3.5 g/dL (3.4-5.0) 3.1 g/dL (3.4-5.0) Albumin/Globulin Ratio 0.8 (1.0-1.7) 0.8 (1.0-1.7) Urine Collection Type Unknown Urine Color Yellow Urine Clarity Clear Urine pH 5.0 (<5.0-8.0) Urine Specific [place] 1.015 (1.000-1.030) Urine Protein 30 mg/dL (NEG-TRACE) Urine Glucose (UA) Negative mg/dL (NEG) Urine Ketones (Stick) Trace mg/dL (NEG) Urine Blood Negative (NEG) Urine Nitrite Negative (NEG) Urine Bilirubin Moderate (NEG) Urine Urobilinogen Dipstick 0.2 mg/dL (0.2 mg/dL) Urine Leukocyte Esterase Negative (NEG) Urine RBC 0 /HPF (0-2) Urine WBC 1-4 /HPF (0-4) Urine Squamous Epithelial Cells Many /LPF Urine Amorphous Sediment Present /HPF Urine Bacteria Moderate /HPF (0-FEW) Urine Hyaline Casts Moderate /HPF Urine Mucus Marked /LPF Magnesium Level 2.2 mg/dL (1.8-2.4) Laboratory Tests Test 01/16/20 18:00 01/16/20 21:10 01/17/20 10:30 White Blood Count 2.5 x10^3/uL (4.0-11.0) 2.5 x10^3/uL (4.0-11.0) Red Blood Count 4.23 x10^6/uL (3.50-5.40) 3.90 x10^6/uL (3.50-5.40) Hemoglobin 12.1 g/dL (12.0-15.5) 11.1 g/dL (12.0-15.5) Hematocrit 37.1 % (36.0-47.0) 34.0 % (36.0-47.0) Mean Corpuscular Volume 88 fL (79-100) 87 fL (79-100) Mean Corpuscular Hemoglobin 29 pg (25-35) 28 pg (25-35) Mean Corpuscular Hemoglobin Concent 33 g/dL (31-37) 33 g/dL (31-37) Red Cell Distribution Width 14.6 % (11.5-14.5) 14.7 % (11.5-14.5) Platelet Count 96 x10^3/uL (140-400) 93 x10^3/uL (140-400) Neutrophils (%) (Auto) 59 % (31-73) 53 % (31-73) Lymphocytes (%) (Auto) 32 % (24-48) 33 % (24-48) Monocytes (%) (Auto) 8 % (0-9) 13 % (0-9) Eosinophils (%) (Auto) 0 % (0-3) 1 % (0-3) Basophils (%) (Auto) 1 % (0-3) 0 % (0-3) Neutrophils # (Auto) 1.4 x10^3/uL (1.8-7.7) 1.3 x10^3/uL (1.8-7.7) Lymphocytes # (Auto) 0.8 x10^3/uL (1.0-4.8) 0.8 x10^3/uL (1.0-4.8) Monocytes # (Auto) 0.2 x10^3/uL (0.0-1.1) 0.3 x10^3/uL (0.0-1.1) Eosinophils # (Auto) 0.0 x10^3/uL (0.0-0.7) 0.0 x10^3/uL (0.0-0.7) Basophils # (Auto) 0.0 x10^3/uL (0.0-0.2) 0.0 x10^3/uL (0.0-0.2) Sodium Level 136 mmol/L (136-145) 140 mmol/L (136-145) Potassium Level 4.6 mmol/L (3.5-5.1) 4.0 mmol/L (3.5-5.1) Chloride Level 101 mmol/L (98-107) 106 mmol/L (98-107) Carbon Dioxide Level 18 mmol/L (21-32) 16 mmol/L (21-32) Anion Gap 17 (6-14) 18 (6-14) Blood Urea Nitrogen 52 mg/dL (7-20) 51 mg/dL (7-20) Creatinine 3.4 mg/dL (0.6-1.0) 2.5 mg/dL (0.6-1.0) Estimated GFR (Cockcroft-Gault) 15.9 22.7 BUN/Creatinine Ratio 15 (6-20) 20 (6-20) Glucose Level 105 mg/dL (70-99) 69 mg/dL (70-99) Uric Acid 13.9 mg/dL (2.6-6.0) Calcium Level 10.2 mg/dL (8.5-10.1) 9.5 mg/dL (8.5-10.1) Total Bilirubin 0.6 mg/dL (0.2-1.0) 0.5 mg/dL (0.2-1.0) Aspartate Amino Transf (AST/SGOT) 74 U/L (15-37) 67 U/L (15-37) Alanine Aminotransferase (ALT/SGPT) 53 U/L (14-59) 51 U/L (14-59) Alkaline Phosphatase 116 U/L (46-116) 103 U/L (46-116) Troponin I Quantitative < 0.017 ng/mL (0.000-0.055) BY-Isr-G-Type Natriuretic Peptide 1412 pg/mL (0-449) Total Protein 8.0 g/dL (6.4-8.2) 7.2 g/dL (6.4-8.2) Albumin 3.5 g/dL (3.4-5.0) 3.1 g/dL (3.4-5.0) Albumin/Globulin Ratio 0.8 (1.0-1.7) 0.8 (1.0-1.7) Urine Collection Type Unknown Urine Color Yellow Urine Clarity Clear Urine pH 5.0 (<5.0-8.0) Urine Specific [place] 1.015 (1.000-1.030) Urine Protein 30 mg/dL (NEG-TRACE) Urine Glucose (UA) Negative mg/dL (NEG) Urine Ketones (Stick) Trace mg/dL (NEG) Urine Blood Negative (NEG) Urine Nitrite Negative (NEG) Urine Bilirubin Moderate (NEG) Urine Urobilinogen Dipstick 0.2 mg/dL (0.2 mg/dL) Urine Leukocyte Esterase Negative (NEG) Urine RBC 0 /HPF (0-2) Urine WBC 1-4 /HPF (0-4) Urine Squamous Epithelial Cells Many /LPF Urine Amorphous Sediment Present /HPF Urine Bacteria Moderate /HPF (0-FEW) Urine Hyaline Casts Moderate /HPF Urine Mucus Marked /LPF Magnesium Level 2.2 mg/dL (1.8-2.4) Assessment/Plan Assessment/Plan IMP HARSHIL-ATN-CR OF 3.4 CKD STAGE 2-CR OF 1.3 SEVERE HYPERURICEMIA-NO GOUT CHRONIC LEUCOPENIA DEHYDRATION LEUCOPENIA WT LOSS OF UNKNOWN REASON DECONDITIONING PLAN AGREE WITH HOLDING ANTIHYPERTENSIVES HYDRATION ALLOPURINOL CHECK PO4 RULE OUT COVID 19 D/W ATTENDING WILL FOLLOW LORIE DICK MD Jan 17, 2020 12:05
[2020-01-17] MEDS: ALLOPURINOL 300 MG TABLET. PO SCH (12:28)
--- NOTE | 2020-01-17 13:06 | PDOC2 ---
GI CONSULT Date of Service: DATE: 01/17/20 TIME: 13:03 Reason For Consult: wt loss HPI: HPI: 74 y/o female w/ HARSHIL. Reports decreased appetite and nausea w/ a "bad taste" in her mouth. Estimates 45 pound weight loss in 8 months. Has also had "fluid" stools x 2 weeks - had 6 yesterday, 3 so far today. Reviewed notes - plans to stop colchicine which she says she has taken for more than a year. Has h/o leukopenia and now thrombocytopenia. Heme/onc asked to comment. Remote h/o "ulcer" though unclear if diagnosed w/ EGD. Denies reflux/heartburn, dysphagia, vomiting, abd pain, constipation, hematochezia, and melena. No GB or pancreas history. Reports adverse reaction to sulfa drug in 1990 resulting in renal and hepatic injury. Eliquis and ASA QD, no NSAIDs. PMH: PMH: leukopenia, HTN, CKD, DVT, gout hysterectomy, renal biopsy, CTR, wisdom tooth extraction Social History: Smoke: No ALCOHOL: rare Drugs: None ROS: GEN: +fatigue HEENT: Denies blurred vision, sore throat CV: Denies chest pain RESP: Denies shortness of air, cough GI: Per HPI : Denies hematuria, dysuria ENDO: +weight loss NEURO: Denies confusion, dizziness MSK: Denies weakness, joint pain/swelling SKIN: Denies jaundice, pruritus Vitals: Vitals: Vital Signs Date Time Temp Pulse Resp B/P (MAP) Pulse Ox O2 Delivery O2 Flow Rate FiO2 01/17/20 11:00 97.7 56 17 109/62 (78) 100 Room Air 97.7 Labs: Labs: Laboratory Tests Test 01/16/20 18:00 01/16/20 21:10 01/17/20 10:30 White Blood Count 2.5 x10^3/uL (4.0-11.0) 2.5 x10^3/uL (4.0-11.0) Red Blood Count 4.23 x10^6/uL (3.50-5.40) 3.90 x10^6/uL (3.50-5.40) Hemoglobin 12.1 g/dL (12.0-15.5) 11.1 g/dL (12.0-15.5) Hematocrit 37.1 % (36.0-47.0) 34.0 % (36.0-47.0) Mean Corpuscular Volume 88 fL (79-100) 87 fL (79-100) Mean Corpuscular Hemoglobin 29 pg (25-35) 28 pg (25-35) Mean Corpuscular Hemoglobin Concent 33 g/dL (31-37) 33 g/dL (31-37) Red Cell Distribution Width 14.6 % (11.5-14.5) 14.7 % (11.5-14.5) Platelet Count 96 x10^3/uL (140-400) 93 x10^3/uL (140-400) Neutrophils (%) (Auto) 59 % (31-73) 53 % (31-73) Lymphocytes (%) (Auto) 32 % (24-48) 33 % (24-48) Monocytes (%) (Auto) 8 % (0-9) 13 % (0-9) Eosinophils (%) (Auto) 0 % (0-3) 1 % (0-3) Basophils (%) (Auto) 1 % (0-3) 0 % (0-3) Neutrophils # (Auto) 1.4 x10^3/uL (1.8-7.7) 1.3 x10^3/uL (1.8-7.7) Lymphocytes # (Auto) 0.8 x10^3/uL (1.0-4.8) 0.8 x10^3/uL (1.0-4.8) Monocytes # (Auto) 0.2 x10^3/uL (0.0-1.1) 0.3 x10^3/uL (0.0-1.1) Eosinophils # (Auto) 0.0 x10^3/uL (0.0-0.7) 0.0 x10^3/uL (0.0-0.7) Basophils # (Auto) 0.0 x10^3/uL (0.0-0.2) 0.0 x10^3/uL (0.0-0.2) Sodium Level 136 mmol/L (136-145) 140 mmol/L (136-145) Potassium Level 4.6 mmol/L (3.5-5.1) 4.0 mmol/L (3.5-5.1) Chloride Level 101 mmol/L (98-107) 106 mmol/L (98-107) Carbon Dioxide Level 18 mmol/L (21-32) 16 mmol/L (21-32) Anion Gap 17 (6-14) 18 (6-14) Blood Urea Nitrogen 52 mg/dL (7-20) 51 mg/dL (7-20) Creatinine 3.4 mg/dL (0.6-1.0) 2.5 mg/dL (0.6-1.0) Estimated GFR (Cockcroft-Gault) 15.9 22.7 BUN/Creatinine Ratio 15 (6-20) 20 (6-20) Glucose Level 105 mg/dL (70-99) 69 mg/dL (70-99) Uric Acid 13.9 mg/dL (2.6-6.0) Calcium Level 10.2 mg/dL (8.5-10.1) 9.5 mg/dL (8.5-10.1) Total Bilirubin 0.6 mg/dL (0.2-1.0) 0.5 mg/dL (0.2-1.0) Aspartate Amino Transf (AST/SGOT) 74 U/L (15-37) 67 U/L (15-37) Alanine Aminotransferase (ALT/SGPT) 53 U/L (14-59) 51 U/L (14-59) Alkaline Phosphatase 116 U/L (46-116) 103 U/L (46-116) Troponin I Quantitative < 0.017 ng/mL (0.000-0.055) WQ-Kzf-V-Type Natriuretic Peptide 1412 pg/mL (0-449) Total Protein 8.0 g/dL (6.4-8.2) 7.2 g/dL (6.4-8.2) Albumin 3.5 g/dL (3.4-5.0) 3.1 g/dL (3.4-5.0) Albumin/Globulin Ratio 0.8 (1.0-1.7) 0.8 (1.0-1.7) Urine Collection Type Unknown Urine Color Yellow Urine Clarity Clear Urine pH 5.0 (<5.0-8.0) Urine Specific [place] 1.015 (1.000-1.030) Urine Protein 30 mg/dL (NEG-TRACE) Urine Glucose (UA) Negative mg/dL (NEG) Urine Ketones (Stick) Trace mg/dL (NEG) Urine Blood Negative (NEG) Urine Nitrite Negative (NEG) Urine Bilirubin Moderate (NEG) Urine Urobilinogen Dipstick 0.2 mg/dL (0.2 mg/dL) Urine Leukocyte Esterase Negative (NEG) Urine RBC 0 /HPF (0-2) Urine WBC 1-4 /HPF (0-4) Urine Squamous Epithelial Cells Many /LPF Urine Amorphous Sediment Present /HPF Urine Bacteria Moderate /HPF (0-FEW) Urine Hyaline Casts Moderate /HPF Urine Mucus Marked /LPF Magnesium Level 2.2 mg/dL (1.8-2.4) Allergies: Coded Allergies: Sulfa (Sulfonamide Antibiotics) (Verified Allergy, Severe, 07/01/17) Medications: Current Medications Medications (Trade) Dose Ordered Sig/Jordon Route PRN Reason Start Time Stop Time Status Last Admin Dose Admin Sodium Chloride 1,000 ml @ 1,000 mls/hr 1X ONCE IV 01/16/20 18:30 01/16/20 19:29 DC 01/16/20 18:23 Vitamin D (Vitamin D3) 1,000 unit DAILY PO 01/17/20 09:00 01/17/20 10:28 Apixaban (Eliquis) 5 mg BID PO 01/17/20 09:00 01/17/20 10:27 Sodium Chloride 1,000 ml @ 125 mls/hr Q8H IV 01/17/20 09:30 01/17/20 09:30 Allopurinol (Zyloprim) 300 mg DAILY PO 01/17/20 13:00 01/17/20 12:28 Imaging: Imaging: CXR Impression: Mild cardiomegaly. Stable appearance of the chest. 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 Check stool studies. Additional recs per Dr. Dong. LISHA FRY Jan 17, 2020 13:06
[2020-01-17 13:35] LABS: LACTATE DEHYDROGENASE 168 U/L (81-234)
[2020-01-17 15:00] VITALS: BP 119/74
--- NOTE | 2020-01-17 15:15 | RAD ---
Renal ultrasound 01/17/2020 INDICATION: Renal failure COMPARISON STUDY: None FINDINGS: Ultrasound evaluation of the kidneys was performed. Static images are submitted to PACS. The right kidney is severely atrophic in appearance with marked cortical thinning. Right kidney measures 9.8 x 3.7 x 3.6 cm. No hydronephrosis, nephrolithiasis, or focal renal lesion is seen on the right. The bladder is predominantly decompressed poorly evaluated. Left kidney is also atrophic in appearance measuring 7.2 x 6 3.7 x 3.0 cm. No hydronephrosis or nephrolithiasis is identified on the left.No focal renal lesion is identified on either side. IMPRESSION: Markedly atrophic appearance of the kidneys. Acute sonographic abnormality is not identified. Electronically signed by: Bryant Sinha MD (01/17/2020 3:12 PM) [id number]
[2020-01-17] MEDS: PANTOPRAZOLE 40 MG TABLET.DR. PO SCH (16:54)
--- NOTE | 2020-01-17 17:28 | NUR ---
SW following for discharge planning. Spoke with RN and reviewed chart. Pt from home. Pt currently on room air, IV fluids, regular diet, COVID pending. Nephrology consulted. Discharge plan is home, self-care. SW available as needed.
[2020-01-17 19:00] VITALS: BP 133/74
[2020-01-17] MEDS: ASPIRIN CHEWABLE 81 MG TABLET. PO SCH (21:07)
[2020-01-17 23:00] VITALS: BP 156/78
[2020-01-18] VITALS (10 sets, daily range): BP systolic 87–165; BP diastolic 57–91
[2020-01-18] MEDS: IV NORMAL SALINE 1000ML BAG 1,000 ML IV SCH ×3 (02:26→21:37)
[2020-01-18 04:29] LABS: BASO % 1 % (0-3); EOS % 1 % (0-3); HEMATOCRIT 31.6 % (36.0-47.0); HEMOGLOBIN 10.4 g/dL (12.0-15.5); LYMPH # 0.9 x10^3/uL (1.0-4.8); LYMPH % 42 % (24-48); MEAN CORPUSCULAR HEMOGLOBIN 29 pg (25-35); MEAN CORPUSCULAR HGB CONC 33 g/dL (31-37); MEAN CORPUSCULAR VOLUME 87 fL (79-100); MONO # 0.2 x10^3/uL (0.0-1.1); MONO % 11 % (0-9); NEUT % 46 % (31-73); PLATELET COUNT 77 x10^3/uL (140-400); RED BLOOD COUNT 3.62 x10^6/uL (3.50-5.40); RED CELL DISTRIBUTION WIDTH 14.7 % (11.5-14.5); WHITE BLOOD COUNT 2.3 x10^3/uL (4.0-11.0)
[2020-01-18 04:51] LABS: ALBUMIN 2.8 g/dL (3.4-5.0); ALBUMIN/GLOBULIN RATIO 0.8 (1.0-1.7); CREATININE 1.9 mg/dL (0.6-1.0); GFR 31.1; POTASSIUM 3.9 mmol/L (3.5-5.1); TOTAL BILIRUBIN 0.5 mg/dL (0.2-1.0); TOTAL PROTEIN 6.3 g/dL (6.4-8.2)
--- NOTE | 2020-01-18 08:21 | PDOC2 ---
CONSULT Date of Consult Date of Consult DATE: 01/18/20 TIME: 07:59 Reason for Consult Reason for Consult: Pancytopenia and weight loss Referring Physician Referring Physician: Dr Vila Identification/Chief Complaint Chief Complaint Weakness Source Source: Chart review, Patient History of Present Illness Reason for Visit: Michell Anderson is a 74 year old female who has been admitted for evaluation and management of generalized weakness and weight loss. She has a reported hx of longstanding leucopenia and was recently found to have new onset anemia and t hrombocytopenia as well. She denies associated fever or night sweats but does report weight loss of around 30 lbs. She denies hematemesis, melena or hematochezia. She denies abdominal pain, nausea, vomiting. She presented to the ER with worsening generalized weakness. She was found to have hypotension and HARSHIL. Hypotension has improved and is suspected to be secondary to antihypertensives. HARSHIL has improved with holding antihypertensives and hydration. Hematology consultation has been sought to evaluate pancytopenia. Per Dr Vila's H&P note, her white count ranges from 2.5-3.5 at baseline Past Medical History Cardiovascular: HTN Pulmonary: Other (DVT) Rheumatologic: Gout Renal/: Chronic renal insuff Family History Family History: Hypertension Social History No ALCOHOL: rare Drugs: None Lives: with Family Current Medications Current Medications Current Medications Sodium Chloride 1,000 ml @ 1,000 mls/hr 1X ONCE IV Last administered on 01/16/20at 18:23; Start 01/16/20 at 18:30; Stop 01/16/20 at 19:29; Status DC Aspirin (Aspirin Chewable) 81 mg HS PO Last administered on 01/17/20at 21:07; Start 01/17/20 at 21:00 Vitamin D (Vitamin D3) 1,000 unit DAILY PO Last administered on 01/17/20at 10:28; Start 01/17/20 at 09:00 Metoprolol Succinate (Toprol Xl) 100 mg DAILY PO ; Start 01/17/20 at 09:00; Stop 01/17/20 at 09:37; Status DC Apixaban (Eliquis) 5 mg BID PO Last administered on 01/17/20at 21:07; Start 01/17/20 at 09:00 Info (Anti-Coagulation Monitoring By Pharmacy) 1 each PRN DAILY PRN MC SEE COMMENTS; Start 01/17/20 at 09:00 Sodium Chloride 1,000 ml @ 125 mls/hr Q8H IV Last administered on 01/18/20at 02:26; Start 01/17/20 at 09:30 Allopurinol (Zyloprim) 300 mg DAILY PO Last administered on 01/17/20at 12:28; Start 01/17/20 at 13:00 Pantoprazole Sodium (Protonix) 40 mg DAILYAC PO Last administered on 01/17/20at 16:54; Start 01/17/20 at 16:30 Active Scripts Active Eliquis (Apixaban) 5 Mg Tablet 5 Mg PO BID Begin on 07/12 Eliquis (Apixaban) 5 Mg Tablet 10 Mg PO BID 7 Days Reported Hydralazine Hcl 25 Mg Tablet 1 Tab PO TID Furosemide 40 Mg Tablet 1 Tab PO PRN DAILY PRN Aspirin 81 Mg Tab.chew 1 Tab PO HS Vitamin D3 (Cholecalciferol (Vitamin D3)) 1,000 Unit Tablet 1 Tab PO DAILY Colcrys (Colchicine) 0.6 Mg Tablet 1 Tab PO BID Amlodipine Besylate 5 Mg Tablet 10 Mg PO DAILY Diovan (Valsartan) 320 Mg Tablet 320 Mg PO DAILY Metoprolol Succinate ( Xl ) (Metoprolol Succinate) 100 Mg Tab.er.24h 1 Tab PO DAILY Doxazosin Mesylate 8 Mg Tablet 1 Tab PO DAILY Clonidine Hcl 0.1 Mg Tablet 0.1 Mg PO BID Allergies Allergies: Coded Allergies: Sulfa (Sulfonamide Antibiotics) (Verified Allergy, Severe, 07/01/17) ROS General: YES: Fatigue, Malaise; No: Chills, Night Sweats, Appetite PSYCHOLOGICAL ROS: No: Anxiety, Behavioral Disorder Eyes: No Blurry vision, No Decreased vision HEENT: No: Oral lesions, Sinus pain ALLERGY AND IMMUNOLOGY: No: Nasal Congestion ENDOCRINE: YES: Malaise/lethargy; No: Palpitations Respiratory: YES: Shortness of breath; No: Cough, Hemoptysis Cardiovascular: No Chest Pain, No Palpitations Gastrointestinal: Yes Diarrhea; No Nausea, No Vomiting Genitourinary: No Dysuria, No Frequency Musculoskeletal: No Gait Disturbance, No Joint Pain Neurological: No Behavorial Changes, No Bowel/Bladder ControlChng Skin: No Dry Skin, No Eczema Physical Exam General: Alert, Oriented X3 HEENT: Atraumatic Lungs: Clear to auscultation Heart: Regular rate, Normal S1, Normal S2 Abdomen: Normal bowel sounds, Soft Extremities: No clubbing, No cyanosis Skin: No rashes Neuro: Normal gait Psych/Mental Status: Mental status NL MUSCULOSKELETAL: No deformity Vitals VITALS Vital Signs Date Time Temp Pulse Resp B/P (MAP) Pulse Ox O2 Delivery O2 Flow Rate FiO2 01/18/20 06:48 97.5 58 17 122/72 (89) 99 Room Air 97.5 Labs Labs Laboratory Tests Test 01/16/20 18:00 01/16/20 21:10 01/17/20 10:30 01/17/20 14:50 White Blood Count 2.5 x10^3/uL (4.0-11.0) 2.5 x10^3/uL (4.0-11.0) Red Blood Count 4.23 x10^6/uL (3.50-5.40) 3.87 x10^6/uL (3.50-5.70) Hemoglobin 12.1 g/dL (12.0-15.5) 11.1 g/dL (12.0-15.5) Hematocrit 37.1 % (36.0-47.0) 34.0 % (36.0-47.0) Mean Corpuscular Volume 88 fL (79-100) 87 fL (79-100) Mean Corpuscular Hemoglobin 29 pg (25-35) 28 pg (25-35) Mean Corpuscular Hemoglobin Concent 33 g/dL (31-37) 33 g/dL (31-37) Red Cell Distribution Width 14.6 % (11.5-14.5) 14.7 % (11.5-14.5) Platelet Count 96 x10^3/uL (140-400) 93 x10^3/uL (140-400) Neutrophils (%) (Auto) 59 % (31-73) 53 % (31-73) Lymphocytes (%) (Auto) 32 % (24-48) 33 % (24-48) Monocytes (%) (Auto) 8 % (0-9) 13 % (0-9) Eosinophils (%) (Auto) 0 % (0-3) 1 % (0-3) Basophils (%) (Auto) 1 % (0-3) 0 % (0-3) Neutrophils # (Auto) 1.4 x10^3/uL (1.8-7.7) 1.3 x10^3/uL (1.8-7.7) Lymphocytes # (Auto) 0.8 x10^3/uL (1.0-4.8) 0.8 x10^3/uL (1.0-4.8) Monocytes # (Auto) 0.2 x10^3/uL (0.0-1.1) 0.3 x10^3/uL (0.0-1.1) Eosinophils # (Auto) 0.0 x10^3/uL (0.0-0.7) 0.0 x10^3/uL (0.0-0.7) Basophils # (Auto) 0.0 x10^3/uL (0.0-0.2) 0.0 x10^3/uL (0.0-0.2) Sodium Level 136 mmol/L (136-145) 140 mmol/L (136-145) Potassium Level 4.6 mmol/L (3.5-5.1) 4.0 mmol/L (3.5-5.1) Chloride Level 101 mmol/L (98-107) 106 mmol/L (98-107) Carbon Dioxide Level 18 mmol/L (21-32) 16 mmol/L (21-32) Anion Gap 17 (6-14) 18 (6-14) Blood Urea Nitrogen 52 mg/dL (7-20) 51 mg/dL (7-20) Creatinine 3.4 mg/dL (0.6-1.0) 2.5 mg/dL (0.6-1.0) Estimated GFR (Cockcroft-Gault) 15.9 22.7 BUN/Creatinine Ratio 15 (6-20) 20 (6-20) Glucose Level 105 mg/dL (70-99) 69 mg/dL (70-99) Uric Acid 13.9 mg/dL (2.6-6.0) Calcium Level 10.2 mg/dL (8.5-10.1) 9.5 mg/dL (8.5-10.1) Total Bilirubin 0.6 mg/dL (0.2-1.0) 0.5 mg/dL (0.2-1.0) Aspartate Amino Transf (AST/SGOT) 74 U/L (15-37) 67 U/L (15-37) Alanine Aminotransferase (ALT/SGPT) 53 U/L (14-59) 51 U/L (14-59) Alkaline Phosphatase 116 U/L (46-116) 103 U/L (46-116) Troponin I Quantitative < 0.017 ng/mL (0.000-0.055) XS-Zma-N-Type Natriuretic Peptide 1412 pg/mL (0-449) Total Protein 8.0 g/dL (6.4-8.2) 7.2 g/dL (6.4-8.2) Albumin 3.5 g/dL (3.4-5.0) 3.1 g/dL (3.4-5.0) Albumin/Globulin Ratio 0.8 (1.0-1.7) 0.8 (1.0-1.7) Urine Collection Type Unknown Urine Color Yellow Urine Clarity Clear Urine pH 5.0 (<5.0-8.0) Urine Specific [place] 1.015 (1.000-1.030) Urine Protein 30 mg/dL (NEG-TRACE) Urine Glucose (UA) Negative mg/dL (NEG) Urine Ketones (Stick) Trace mg/dL (NEG) Urine Blood Negative (NEG) Urine Nitrite Negative (NEG) Urine Bilirubin Moderate (NEG) Urine Urobilinogen Dipstick 0.2 mg/dL (0.2 mg/dL) Urine Leukocyte Esterase Negative (NEG) Urine RBC 0 /HPF (0-2) Urine WBC 1-4 /HPF (0-4) Urine Squamous Epithelial Cells Many /LPF Urine Amorphous Sediment Present /HPF Urine Bacteria Moderate /HPF (0-FEW) Urine Hyaline Casts Moderate /HPF Urine Mucus Marked /LPF Absolute Reticulocyte Count 0.032 x10^6/uL (0.020-0.120) Percent Reticulocyte Count 0.8 % (0.5-2.3) Immature Reticulocyte Fraction 0.37 (0.20-0.60) Magnesium Level 2.2 mg/dL (1.8-2.4) Iron Level 80 ug/dL (50-170) Total Iron Binding Capacity 212 ug/dL (250-450) Iron Saturation 38 % (15-34) Ferritin 525 ng/mL (8-252) Lactate Dehydrogenase 168 U/L (81-234) Vitamin B12 Level 1726 pg/mL (247-911) Haptoglobin 27 mg/dL (42-346) Test 01/18/20 04:00 White Blood Count 2.3 x10^3/uL (4.0-11.0) Red Blood Count 3.62 x10^6/uL (3.50-5.40) Hemoglobin 10.4 g/dL (12.0-15.5) Hematocrit 31.6 % (36.0-47.0) Mean Corpuscular Volume 87 fL (79-100) Mean Corpuscular Hemoglobin 29 pg (25-35) Mean Corpuscular Hemoglobin Concent 33 g/dL (31-37) Red Cell Distribution Width 14.7 % (11.5-14.5) Platelet Count 77 x10^3/uL (140-400) Neutrophils (%) (Auto) 46 % (31-73) Lymphocytes (%) (Auto) 42 % (24-48) Monocytes (%) (Auto) 11 % (0-9) Eosinophils (%) (Auto) 1 % (0-3) Basophils (%) (Auto) 1 % (0-3) Neutrophils # (Auto) 1.0 x10^3/uL (1.8-7.7) Lymphocytes # (Auto) 0.9 x10^3/uL (1.0-4.8) Monocytes # (Auto) 0.2 x10^3/uL (0.0-1.1) Eosinophils # (Auto) 0.0 x10^3/uL (0.0-0.7) Basophils # (Auto) 0.0 x10^3/uL (0.0-0.2) Sodium Level 143 mmol/L (136-145) Potassium Level 3.9 mmol/L (3.5-5.1) Chloride Level 109 mmol/L (98-107) Carbon Dioxide Level 16 mmol/L (21-32) Anion Gap 18 (6-14) Blood Urea Nitrogen 40 mg/dL (7-20) Creatinine 1.9 mg/dL (0.6-1.0) Estimated GFR (Cockcroft-Gault) 31.1 BUN/Creatinine Ratio 21 (6-20) Glucose Level 61 mg/dL (70-99) Uric Acid 12.3 mg/dL (2.6-6.0) Calcium Level 9.0 mg/dL (8.5-10.1) Phosphorus Level 3.0 mg/dL (2.6-4.7) Magnesium Level 2.1 mg/dL (1.8-2.4) Total Bilirubin 0.5 mg/dL (0.2-1.0) Aspartate Amino Transf (AST/SGOT) 59 U/L (15-37) Alanine Aminotransferase (ALT/SGPT) 47 U/L (14-59) Alkaline Phosphatase 89 U/L (46-116) Creatine Kinase 97 U/L (26-192) Total Protein 6.3 g/dL (6.4-8.2) Albumin 2.8 g/dL (3.4-5.0) Albumin/Globulin Ratio 0.8 (1.0-1.7) Thyroid Stimulating Hormone (TSH) 0.897 uIU/mL (0.358-3.74) Laboratory Tests Test 01/17/20 10:30 01/17/20 14:50 01/18/20 04:00 White Blood Count 2.5 x10^3/uL (4.0-11.0) 2.3 x10^3/uL (4.0-11.0) Red Blood Count 3.87 x10^6/uL (3.50-5.70) 3.62 x10^6/uL (3.50-5.40) Hemoglobin 11.1 g/dL (12.0-15.5) 10.4 g/dL (12.0-15.5) Hematocrit 34.0 % (36.0-47.0) 31.6 % (36.0-47.0) Mean Corpuscular Volume 87 fL (79-100) 87 fL (79-100) Mean Corpuscular Hemoglobin 28 pg (25-35) 29 pg (25-35) Mean Corpuscular Hemoglobin Concent 33 g/dL (31-37) 33 g/dL (31-37) Red Cell Distribution Width 14.7 % (11.5-14.5) 14.7 % (11.5-14.5) Platelet Count 93 x10^3/uL (140-400) 77 x10^3/uL (140-400) Neutrophils (%) (Auto) 53 % (31-73) 46 % (31-73) Lymphocytes (%) (Auto) 33 % (24-48) 42 % (24-48) Monocytes (%) (Auto) 13 % (0-9) 11 % (0-9) Eosinophils (%) (Auto) 1 % (0-3) 1 % (0-3) Basophils (%) (Auto) 0 % (0-3) 1 % (0-3) Neutrophils # (Auto) 1.3 x10^3/uL (1.8-7.7) 1.0 x10^3/uL (1.8-7.7) Lymphocytes # (Auto) 0.8 x10^3/uL (1.0-4.8) 0.9 x10^3/uL (1.0-4.8) Monocytes # (Auto) 0.3 x10^3/uL (0.0-1.1) 0.2 x10^3/uL (0.0-1.1) Eosinophils # (Auto) 0.0 x10^3/uL (0.0-0.7) 0.0 x10^3/uL (0.0-0.7) Basophils # (Auto) 0.0 x10^3/uL (0.0-0.2) 0.0 x10^3/uL (0.0-0.2) Absolute Reticulocyte Count 0.032 x10^6/uL (0.020-0.120) Percent Reticulocyte Count 0.8 % (0.5-2.3) Immature Reticulocyte Fraction 0.37 (0.20-0.60) Sodium Level 140 mmol/L (136-145) 143 mmol/L (136-145) Potassium Level 4.0 mmol/L (3.5-5.1) 3.9 mmol/L (3.5-5.1) Chloride Level 106 mmol/L (98-107) 109 mmol/L (98-107) Carbon Dioxide Level 16 mmol/L (21-32) 16 mmol/L (21-32) Anion Gap 18 (6-14) 18 (6-14) Blood Urea Nitrogen 51 mg/dL (7-20) 40 mg/dL (7-20) Creatinine 2.5 mg/dL (0.6-1.0) 1.9 mg/dL (0.6-1.0) Estimated GFR (Cockcroft-Gault) 22.7 31.1 BUN/Creatinine Ratio 20 (6-20) 21 (6-20) Glucose Level 69 mg/dL (70-99) 61 mg/dL (70-99) Calcium Level 9.5 mg/dL (8.5-10.1) 9.0 mg/dL (8.5-10.1) Magnesium Level 2.2 mg/dL (1.8-2.4) 2.1 mg/dL (1.8-2.4) Iron Level 80 ug/dL (50-170) Total Iron Binding Capacity 212 ug/dL (250-450) Iron Saturation 38 % (15-34) Ferritin 525 ng/mL (8-252) Total Bilirubin 0.5 mg/dL (0.2-1.0) 0.5 mg/dL (0.2-1.0) Aspartate Amino Transf (AST/SGOT) 67 U/L (15-37) 59 U/L (15-37) Alanine Aminotransferase (ALT/SGPT) 51 U/L (14-59) 47 U/L (14-59) Alkaline Phosphatase 103 U/L (46-116) 89 U/L (46-116) Lactate Dehydrogenase 168 U/L (81-234) Total Protein 7.2 g/dL (6.4-8.2) 6.3 g/dL (6.4-8.2) Albumin 3.1 g/dL (3.4-5.0) 2.8 g/dL (3.4-5.0) Albumin/Globulin Ratio 0.8 (1.0-1.7) 0.8 (1.0-1.7) Vitamin B12 Level 1726 pg/mL (247-911) Haptoglobin 27 mg/dL (42-346) Uric Acid 12.3 mg/dL (2.6-6.0) Phosphorus Level 3.0 mg/dL (2.6-4.7) Creatine Kinase 97 U/L (26-192) Thyroid Stimulating Hormone (TSH) 0.897 uIU/mL (0.358-3.74) Assessment/Plan Assessment/Plan Assessment: Pancytopenia with hx of chronic leucopenia Unexplained weight loss CKD3 with superimposed HARSHIL, improved Gout Recommendations: -I recommended and checked B12, iron studies. These are not suggestive of YVON or B12 deficiency -Checked LDH, haptoglobin. Not suggestive of hemolysis -SPEP, free K/L light chains, epo level were ordered and pending -Given new cytopenias and unexplained weight loss, it is reasonable to evaluate further with a bone marrow bx at this time. Placed orders for BM Bx in IR -Continue supportive care care with IVF for HARSHIL. Nephrology following -Continue GI eval -Rest per Dr Vila -Will follow. She does not need to remain inpatient to review results of bone marow bx and may be discharged over the weekend if clinically indicated. Will arrange outpatient FU to review bone marrow results. Please call [phone] with any questions. MADELIN RANKIN MD Jan 18, 2020 08:21
[2020-01-18] MEDS: CHOLECALCIFEROL (VITAMIN D3) 1,000 UNIT TABLET PO SCH (09:47)
[2020-01-18] MEDS: ALLOPURINOL 300 MG TABLET. PO SCH (09:48)
[2020-01-18] MEDS: APIXABAN 5 MG TABLET. PO SCH ×2 (09:48→21:37)
[2020-01-18] MEDS: PANTOPRAZOLE 40 MG TABLET.DR. PO SCH (09:48)
--- NOTE | 2020-01-18 10:01 | PDOC ---
IM PROGRESS NOTES- Subjective Subjective No complaints of dyspnea or pain. Appetite is poor Objective Vitals/I&O Vital Signs Date Time Temp Pulse Resp B/P (MAP) Pulse Ox O2 Delivery O2 Flow Rate FiO2 01/18/20 06:48 97.5 58 17 122/72 (89) 99 Room Air 97.5 I & O 01/17/20 01/17/20 01/18/20 15:00 23:00 07:00 Intake Total 180 ml 240 ml Balance 180 ml 240 ml Physical Exam Physical Exam GENERAL: The patient is an elderly -[place] female, who is alert, oriented, chronically ill and not in any acute distress. LUNGS: Decreased breath sounds at bases. CARDIOVASCULAR: S1, S2 regular. ABDOMEN: Soft, nontender. No guarding. No rigidity. Bowel sounds present. EXTREMITIES: Trace edema. CENTRAL NERVOUS SYSTEM: Alert and oriented, generalized weakness. Labs Laboratory Tests Test 01/17/20 10:30 01/17/20 14:50 01/18/20 04:00 White Blood Count 2.5 x10^3/uL (4.0-11.0) L 2.3 x10^3/uL (4.0-11.0) L Red Blood Count 3.87 x10^6/uL (3.50-5.70) 3.62 x10^6/uL (3.50-5.40) Hemoglobin 11.1 g/dL (12.0-15.5) L 10.4 g/dL (12.0-15.5) L Hematocrit 34.0 % (36.0-47.0) L 31.6 % (36.0-47.0) L Mean Corpuscular Volume 87 fL (79-100) 87 fL (79-100) Mean Corpuscular Hemoglobin 28 pg (25-35) 29 pg (25-35) Mean Corpuscular Hemoglobin Concent 33 g/dL (31-37) 33 g/dL (31-37) Red Cell Distribution Width 14.7 % (11.5-14.5) H 14.7 % (11.5-14.5) H Platelet Count 93 x10^3/uL (140-400) L 77 x10^3/uL (140-400) L Neutrophils (%) (Auto) 53 % (31-73) 46 % (31-73) Lymphocytes (%) (Auto) 33 % (24-48) 42 % (24-48) Monocytes (%) (Auto) 13 % (0-9) H 11 % (0-9) H Eosinophils (%) (Auto) 1 % (0-3) 1 % (0-3) Basophils (%) (Auto) 0 % (0-3) 1 % (0-3) Neutrophils # (Auto) 1.3 x10^3/uL (1.8-7.7) L 1.0 x10^3/uL (1.8-7.7) L Lymphocytes # (Auto) 0.8 x10^3/uL (1.0-4.8) L 0.9 x10^3/uL (1.0-4.8) L Monocytes # (Auto) 0.3 x10^3/uL (0.0-1.1) 0.2 x10^3/uL (0.0-1.1) Eosinophils # (Auto) 0.0 x10^3/uL (0.0-0.7) 0.0 x10^3/uL (0.0-0.7) Basophils # (Auto) 0.0 x10^3/uL (0.0-0.2) 0.0 x10^3/uL (0.0-0.2) Absolute Reticulocyte Count 0.032 x10^6/uL (0.020-0.120) Percent Reticulocyte Count 0.8 % (0.5-2.3) Immature Reticulocyte Fraction 0.37 (0.20-0.60) Sodium Level 140 mmol/L (136-145) 143 mmol/L (136-145) Potassium Level 4.0 mmol/L (3.5-5.1) 3.9 mmol/L (3.5-5.1) Chloride Level 106 mmol/L (98-107) 109 mmol/L (98-107) H Carbon Dioxide Level 16 mmol/L (21-32) L 16 mmol/L (21-32) L Anion Gap 18 (6-14) H 18 (6-14) H Blood Urea Nitrogen 51 mg/dL (7-20) H 40 mg/dL (7-20) H Creatinine 2.5 mg/dL (0.6-1.0) H 1.9 mg/dL (0.6-1.0) H Estimated GFR (Cockcroft-Gault) 22.7 31.1 BUN/Creatinine Ratio 20 (6-20) 21 (6-20) H Glucose Level 69 mg/dL (70-99) L 61 mg/dL (70-99) L Calcium Level 9.5 mg/dL (8.5-10.1) 9.0 mg/dL (8.5-10.1) Magnesium Level 2.2 mg/dL (1.8-2.4) 2.1 mg/dL (1.8-2.4) Iron Level 80 ug/dL (50-170) Total Iron Binding Capacity 212 ug/dL (250-450) L Iron Saturation 38 % (15-34) H Ferritin 525 ng/mL (8-252) H Total Bilirubin 0.5 mg/dL (0.2-1.0) 0.5 mg/dL (0.2-1.0) Aspartate Amino Transferase (AST) 67 U/L (15-37) H 59 U/L (15-37) H Alanine Aminotransferase (ALT) 51 U/L (14-59) 47 U/L (14-59) Alkaline Phosphatase 103 U/L (46-116) 89 U/L (46-116) Lactate Dehydrogenase 168 U/L (81-234) Total Protein 7.2 g/dL (6.4-8.2) 6.3 g/dL (6.4-8.2) L Albumin 3.1 g/dL (3.4-5.0) L 2.8 g/dL (3.4-5.0) L Albumin/Globulin Ratio 0.8 (1.0-1.7) L Pending 0.8 (1.0-1.7) L Vitamin B12 Level 1726 pg/mL (247-911) H Haptoglobin 27 mg/dL (42-346) L Total Protein (PEP) Pending Albumin (PEP) Pending Globulin Pending [id number] Pending [id number] Pending Beta Globulins Pending Gamma Globulins Pending Protein Electrophoresis M-Curtis Pending Protein Electrophoresis Comment Pending Copper Level Pending Immunoglobulin [place]/Lambda Ratio Pending Free [place] Light Chains Pending Free Lambda Light Chains Pending Uric Acid 12.3 mg/dL (2.6-6.0) H Phosphorus Level 3.0 mg/dL (2.6-4.7) Creatine Kinase 97 U/L (26-192) Thyroid Stimulating Hormone (TSH) 0.897 uIU/mL (0.358-3.74) Laboratory Tests 01/17/20 10:30 01/18/20 04:00 Laboratory Tests 01/17/20 10:30 01/18/20 04:00 Meds Current Medications Medications (Trade) Dose Ordered Sig/Jordon Route PRN Reason Start Time Stop Time Status Last Admin Dose Admin Aspirin (Aspirin Chewable) 81 mg HS PO 01/17/20 21:00 01/17/20 21:07 Allopurinol (Zyloprim) 300 mg DAILY PO 01/17/20 13:00 01/17/20 12:28 Pantoprazole Sodium (Protonix) 40 mg DAILYAC PO 01/17/20 16:30 01/17/20 16:54 Assessment Assessment 1. Acute kidney injury with chronic kidney disease 2. 2. Leukopenia. 3. Weight loss. 4. Diarrhea. 5. Benign hypertension with chronic kidney disease 2. 6. Bradycardia. 7. Physical deconditioning. 8. Osteoarthritis. PLAN: 1. Acute kidney injury. Consult Dr. Corona for Nephrology evaluation and management. Start IV. The patient was given IV bolus in the ER. I will start her on IV normal saline. Give her fluids cautiously as she has a history of hypertension and also has some swelling of the legs. She has chronic lower extremity swelling. BUN has decreased to 40 and creatinine to 1.9. 2. Leukopenia. This is chronic leukopenia, but she is also starting to have thrombocytopenia and leukopenia is also gradually getting worse. Consult Dr. Schilling for Hematology evaluation and management. WBC count is 2.3 Work-up in progress. She is going to have a bone marrow biopsy 3. Weight loss, about 45 pounds, especially most of it in last few weeks. Consult Dr. Dong for GI evaluation and management. 4. Diarrhea. This may be due to her weight loss with her being on colchicine. Discontinue colchicine. 5. Gout. Uric acid 13.9. This may be worse due to her renal insufficiency. We will monitor. Uric acid level is decreased to 12.1. 6. Physical deconditioning. Continue to monitor. 7. Anemia- T she has anemia of chronic disease. IBC is low. Iron levels are normal. Ferritin is elevated. Vitamin B12 is normal. Continue IV fluids, recheck labs in a.m. COVID-19 test is pending. I will hold most of the blood pressure medications because of the low blood pressure, acute renal failure and also bradycardia. For details, please refer to the we will use SCDs for DVT prophylaxis. She has thrombocytopenia and renal insufficiency. Will not use Lovenox or heparin at this time. orders. Plan Plan For more details regarding further plans, please refer to the orders. Justifications for Admission Other Justification SEVEN GONZALEZ MD Jan 18, 2020 10:01
[2020-01-18] MEDS ORDERED: LIDOCAINE WITH 8.4% SOD BICARB 3 ML DISP.SYRIN. ONE (11:02)
[2020-01-18] MEDS ORDERED: fentaNYL PF VIAL 100 MCG/2 ML VIAL ONE (11:12)
[2020-01-18] MEDS ORDERED: MIDAZOLAM HCL/PF 2 MG/2 ML VIAL. ONE (11:12)
--- NOTE | 2020-01-18 11:28 | NUR ---
[facility] following for discharge planning. Spoke with RN and reviewed chart. Pt from home. Pt remains on IV fluids with a regular diet. Pt's COVID results came back negative. Pt now on with no home . [facility] following. Addendum: 01/21/20 at 1101 by TIFFANY REES pt discharged 01/19 on room air, self-care.
[2020-01-18] MEDS ORDERED: MIDAZOLAM HCL/PF 2 MG/2 ML VIAL. IV ONE (11:30)
[2020-01-18] MEDS ORDERED: LIDOCAINE WITH 8.4% SOD BICARB 3 ML DISP.SYRIN. IJ ONE (11:30)
[2020-01-18] MEDS ORDERED: fentaNYL PF VIAL 100 MCG/2 ML VIAL IV ONE (11:30)
--- NOTE | 2020-01-18 11:36 | PDOC ---
Date of Service: DATE: 01/18/20 TIME: 11:32 Objective: Objective: D/w nurse - out for bone marrow biopsy, poor appetite, no diarrhea. Vital Signs: Vital Signs Date Time Temp Pulse Resp B/P (MAP) Pulse Ox O2 Delivery O2 Flow Rate FiO2 01/18/20 11:27 84 18 100 Nasal Cannula 2.0 01/18/20 06:48 97.5 122/72 (89) 97.5 Labs: Laboratory Tests Test 01/17/20 14:50 01/18/20 04:00 Haptoglobin 27 mg/dL Total Protein (PEP) Pending Albumin (PEP) Pending Globulin Pending Albumin/Globulin Ratio Pending 0.8 [id number] Pending [id number] Pending Beta Globulins Pending Gamma Globulins Pending Protein Electrophoresis M-Curtis Pending Protein Electrophoresis Comment Pending Copper Level Pending Immunoglobulin [place]/Lambda Ratio Pending Free [place] Light Chains Pending Free Lambda Light Chains Pending White Blood Count 2.3 x10^3/uL Red Blood Count 3.62 x10^6/uL Hemoglobin 10.4 g/dL Hematocrit 31.6 % Mean Corpuscular Volume 87 fL Mean Corpuscular Hemoglobin 29 pg Mean Corpuscular Hemoglobin Concent 33 g/dL Red Cell Distribution Width 14.7 % Platelet Count 77 x10^3/uL Neutrophils (%) (Auto) 46 % Lymphocytes (%) (Auto) 42 % Monocytes (%) (Auto) 11 % Eosinophils (%) (Auto) 1 % Basophils (%) (Auto) 1 % Neutrophils # (Auto) 1.0 x10^3/uL Lymphocytes # (Auto) 0.9 x10^3/uL Monocytes # (Auto) 0.2 x10^3/uL Eosinophils # (Auto) 0.0 x10^3/uL Basophils # (Auto) 0.0 x10^3/uL Sodium Level 143 mmol/L Potassium Level 3.9 mmol/L Chloride Level 109 mmol/L Carbon Dioxide Level 16 mmol/L Anion Gap 18 Blood Urea Nitrogen 40 mg/dL Creatinine 1.9 mg/dL Estimated GFR (Cockcroft-Gault) 31.1 BUN/Creatinine Ratio 21 Glucose Level 61 mg/dL Uric Acid 12.3 mg/dL Calcium Level 9.0 mg/dL Phosphorus Level 3.0 mg/dL Magnesium Level 2.1 mg/dL Total Bilirubin 0.5 mg/dL Aspartate Amino Transf (AST/SGOT) 59 U/L Alanine Aminotransferase (ALT/SGPT) 47 U/L Alkaline Phosphatase 89 U/L Creatine Kinase 97 U/L Total Protein 6.3 g/dL Albumin 2.8 g/dL Thyroid Stimulating Hormone (TSH) 0.897 uIU/mL URINE CULTURE Preliminary Preliminary 60,000 CFU/ML [GRAM NEGATIVE RODS] on 01/18/20 at 0953 PE: out of room A/P: CKD/HARSHIL, UTI, pancytopenia Decreased appetite, weight loss COVID-19 negative -- Out of room, will follow-up later. Celiac markers pending. CT? Justicifation of Admission Dx: Justifications for Admission: Justification of Admission Dx: Yes LISHA FRY Jan 18, 2020 11:36
--- NOTE | 2020-01-18 11:40 | PDOC ---
Renal-Progress Notes Subjective Notes Notes NO NEW COMPLAINTS History of Present Illness Hx of present illness STABLE Vitals Vitals Vital Signs Date Time Temp Pulse Resp B/P (MAP) Pulse Ox O2 Delivery O2 Flow Rate FiO2 01/18/20 11:35 16 99 Nasal Cannula 2.0 01/18/20 11:30 83 01/18/20 06:48 97.5 122/72 (89) 97.5 Weight Weight [ ] I.O. Intake and Output Intake and Output 01/18/20 07:00 Intake Total 420 ml Balance 420 ml Intake Oral 420 ml # Voids 7 Labs Labs Laboratory Tests Test 01/17/20 14:50 01/18/20 04:00 Haptoglobin 27 mg/dL (42-346) White Blood Count 2.3 x10^3/uL (4.0-11.0) Red Blood Count 3.62 x10^6/uL (3.50-5.40) Hemoglobin 10.4 g/dL (12.0-15.5) Hematocrit 31.6 % (36.0-47.0) Mean Corpuscular Volume 87 fL (79-100) Mean Corpuscular Hemoglobin 29 pg (25-35) Mean Corpuscular Hemoglobin Concent 33 g/dL (31-37) Red Cell Distribution Width 14.7 % (11.5-14.5) Platelet Count 77 x10^3/uL (140-400) Neutrophils (%) (Auto) 46 % (31-73) Lymphocytes (%) (Auto) 42 % (24-48) Monocytes (%) (Auto) 11 % (0-9) Eosinophils (%) (Auto) 1 % (0-3) Basophils (%) (Auto) 1 % (0-3) Neutrophils # (Auto) 1.0 x10^3/uL (1.8-7.7) Lymphocytes # (Auto) 0.9 x10^3/uL (1.0-4.8) Monocytes # (Auto) 0.2 x10^3/uL (0.0-1.1) Eosinophils # (Auto) 0.0 x10^3/uL (0.0-0.7) Basophils # (Auto) 0.0 x10^3/uL (0.0-0.2) Sodium Level 143 mmol/L (136-145) Potassium Level 3.9 mmol/L (3.5-5.1) Chloride Level 109 mmol/L (98-107) Carbon Dioxide Level 16 mmol/L (21-32) Anion Gap 18 (6-14) Blood Urea Nitrogen 40 mg/dL (7-20) Creatinine 1.9 mg/dL (0.6-1.0) Estimated GFR (Cockcroft-Gault) 31.1 BUN/Creatinine Ratio 21 (6-20) Glucose Level 61 mg/dL (70-99) Uric Acid 12.3 mg/dL (2.6-6.0) Calcium Level 9.0 mg/dL (8.5-10.1) Phosphorus Level 3.0 mg/dL (2.6-4.7) Magnesium Level 2.1 mg/dL (1.8-2.4) Total Bilirubin 0.5 mg/dL (0.2-1.0) Aspartate Amino Transf (AST/SGOT) 59 U/L (15-37) Alanine Aminotransferase (ALT/SGPT) 47 U/L (14-59) Alkaline Phosphatase 89 U/L (46-116) Creatine Kinase 97 U/L (26-192) Total Protein 6.3 g/dL (6.4-8.2) Albumin 2.8 g/dL (3.4-5.0) Albumin/Globulin Ratio 0.8 (1.0-1.7) Thyroid Stimulating Hormone (TSH) 0.897 uIU/mL (0.358-3.74) Micro Micro Microbiology 01/16/20 Urine Culture - Preliminary, Resulted Review of Systems Constitutional: yes: alert, oriented Ears/Nose/Throat: Yes: no symptom reported Eyes: Yes: no symptom reported Pulmonary: Yes no symptom reported Cardiovascular: Yes no symptom reported Gastrointestional: Yes: nausea Genitourinary: Yes: no symptom reported Musculoskeletal: Yes: no symptom reported Skin: Yes no symptom reported Psychiatric/Neurological: Yes: no symptom reported Endocrine: Yes: no symptom reported Physical Exam General Appearance: no apparent distress Skin: warm Heart: S1S2 Abdomen: soft, bowel sounds present Genitourinary: bladder flat Extremities: pulses present Neurology: alert Assessment Assessment IMP HARSHIL-ATN-CR OF 3.8-SAUBEJZI-RB DOWN TO 1.9 CKD STAGE 2-CR OF 1.3 AG MET ACIDOSIS SEVERE HYPERURICEMIA-NO GOUT-UA DOWN TO 12.9 CHRONIC LEUCOPENIA DEHYDRATION LEUCOPENIA WT LOSS OF UNKNOWN REASON DECONDITIONING PLAN AGREE WITH HOLDING ANTIHYPERTENSIVES HYDRATION ALLOPURINOL D/W ATTENDING WILL FOLLOW LORIE DICK MD Jan 18, 2020 11:40
[2020-01-18 14:14] LABS: KAPPA FREE 122.9 mg/L (3.3-19.4); KAPPA LAMBDA RATIO 1.53 (0.26-1.65); LAMBDA FREE 80.1 mg/L (5.7-26.3)
[2020-01-18] MEDS ORDERED: CONTRAST GIVEN. MC PRN (15:15)
[2020-01-18] MEDS ORDERED: IOHEXOL 240 MG/ML 50ML VIAL. PO ONE (15:15)
--- NOTE | 2020-01-18 15:20 | RAD ---
CT-guided bone marrow biopsy. 01/18/2020 1:17 PM Indication: Pancytopenia Discussion: The risks and benefits of the procedure, including but not limited to, bleeding and infection were discussed patient. Informed consent was obtained. The patient was brought to the CT scanner and placed in the prone position. A timeout procedure was performed. Editor Index CT imaging of the pelvis demonstrated left ilium amenable to bone marrow biopsy. The overlying soft tissues were prepped and draped using maximum sterile barrier technique. 1% lidocaine without epinephrine was administered for local anesthesia. Under intermittent CT guidance, an OncControl needle was advanced into the bone marrow of the left iliac crest. 2 Aspirates and 1 core biopsy samples were obtained. Samples were delivered to pathology was present at the time of procedure. The needle was removed and manual pressure held to achieve hemostasis. No immediate complications were identified. The procedure was performed under conscious sedation including continuous cardiopulmonary monitoring via dedicated sedation nurse. Sedation time: 8 mins. Impression: Successful CT-guided bone marrow biopsy of the left iliac crest . PQRS Compliance Statement: One or more of the following individualized dose reduction techniques were utilized for this examination: 1. Automated exposure control 2. Adjustment of the mA and/or kV according to patient size 3. Use of iterative reconstruction technique
--- NOTE | 2020-01-18 16:24 | RAD ---
EXAM: Abdomen and pelvis CT with intravenous contrast. HISTORY: Weight loss. Decreased appetite. TECHNIQUE: Computed tomographic images of the abdomen and pelvis were obtained following the administration of intravenous contrast. Multiplanar reformatting was performed. *One or more of the following individualized dose reduction techniques were utilized for this examination: 1. Automated exposure control. 2. Adjustment of the mA and/or kV according to patient size. 3. Use of iterative reconstruction technique. COMPARISON: None. FINDINGS: Evaluation of the lower thorax demonstrates a 3 mm groundglass opacity within the right middle lobe, likely postinfectious or postinflammatory in etiology. No suspicious nodule is seen. There is basilar atelectasis or scarring. There is a calcified granuloma within the left lower lobe. There is a mildly ectatic ascending aorta. There is trace pericardial fluid. There is calcification of the aortic valve. No hepatic lesion is seen. There is slight increased density within the gallbladder which may be due to sludge. The pancreas is unremarkable. There are splenic granulomas. The adrenal glands are unremarkable. There is renal atrophy and cortical lobulation due to scarring. There is no nephrolithiasis or hydronephrosis. No convincing solid renal lesion is seen. There is no appendicitis. There is no bowel obstruction. There is distal colonic diverticulosis. There is no diverticulitis. There is slight increased colonic wall fat, a finding which can be seen as a sequela of prior inflammation. There is no convincing acute colitis. The abdominal aorta is tortuous. There is no lymphadenopathy. There are degenerative changes throughout the spine. There is no suspicious or acute osseous finding. IMPRESSION: 1. Colonic diverticulosis without evidence of diverticulitis. 2. No convincing acute abdominal or pelvic finding. Electronically signed by: Danika Barr MD (01/18/2020 4:21 PM) [place] [id number]
[2020-01-18] MEDS: ASPIRIN CHEWABLE 81 MG TABLET. PO SCH (21:37)
[2020-01-19 01:09] LABS: HEMOGLOBIN A1C 5.3 % (4.8-5.6)
[2020-01-19 03:00] VITALS: BP 169/98
[2020-01-19] MEDS: IV NORMAL SALINE 1000ML BAG 1,000 ML IV SCH ×3 (03:40→17:51)
[2020-01-19 04:58] LABS: CALCIUM 8.7 mg/dL (8.5-10.1); CREATININE 1.4 mg/dL (0.6-1.0); GFR 44.2; POTASSIUM 3.8 mmol/L (3.5-5.1); URIC ACID 10.3 mg/dL (2.6-6.0)
[2020-01-19 07:00] VITALS: BP 166/86
[2020-01-19] MEDS: APIXABAN 5 MG TABLET. PO SCH ×2 (08:27→20:24)
[2020-01-19] MEDS: PANTOPRAZOLE 40 MG TABLET.DR. PO SCH (08:27)
[2020-01-19] MEDS: CHOLECALCIFEROL (VITAMIN D3) 1,000 UNIT TABLET PO SCH (08:27)
[2020-01-19] MEDS: ALLOPURINOL 300 MG TABLET. PO SCH (08:27)
--- NOTE | 2020-01-19 09:59 | PDOC ---
IM PROGRESS NOTES- Subjective Subjective No complaints of dyspnea or pain. Food does not taste good. She is only eating a few bites. Objective Vitals/I&O Vital Signs Date Time Temp Pulse Resp B/P (MAP) Pulse Ox O2 Delivery O2 Flow Rate FiO2 01/19/20 08:00 Room Air 01/19/20 07:00 97.9 72 18 166/86 (112) 96 97.9 01/18/20 20:00 2.0 Physical Exam Physical Exam GENERAL: The patient is an elderly -[place] female, who is alert, oriented, chronically ill and not in any acute distress. LUNGS: Decreased breath sounds at bases. CARDIOVASCULAR: S1, S2 regular. ABDOMEN: Soft, nontender. No guarding. No rigidity. Bowel sounds present. EXTREMITIES: Trace edema. CENTRAL NERVOUS SYSTEM: Alert and oriented, generalized weakness. Labs Laboratory Tests Test 01/19/20 03:45 Sodium Level 146 mmol/L (136-145) H Potassium Level 3.8 mmol/L (3.5-5.1) Chloride Level 113 mmol/L (98-107) H Carbon Dioxide Level 17 mmol/L (21-32) L Anion Gap 16 (6-14) H Blood Urea Nitrogen 26 mg/dL (7-20) H Creatinine 1.4 mg/dL (0.6-1.0) H Estimated GFR (Cockcroft-Gault) 44.2 Glucose Level 65 mg/dL (70-99) L Uric Acid 10.3 mg/dL (2.6-6.0) H Calcium Level 8.7 mg/dL (8.5-10.1) Laboratory Tests 01/19/20 03:45 Meds Current Medications Medications (Trade) Dose Ordered Sig/Jordon Route PRN Reason Start Time Stop Time Status Last Admin Dose Admin Lidocaine HCl (Buffered Lidocaine 1%) 7 ml 1X ONCE IJ 01/18/20 11:30 01/18/20 11:31 DC 01/18/20 11:33 Midazolam HCl (Versed) 2 mg 1X ONCE IV 01/18/20 11:30 01/18/20 11:31 DC 01/18/20 11:33 Fentanyl Citrate (Fentanyl 2ml Vial) 50 mcg 1X ONCE IV 01/18/20 11:30 01/18/20 11:31 DC 01/18/20 11:35 Iohexol (Omnipaque 240 Mg/ml) 30 ml 1X ONCE PO 01/18/20 15:15 01/18/20 15:16 DC 01/18/20 15:15 Assessment Assessment 1. Acute kidney injury with chronic kidney disease 2. 2. Leukopenia. 3. Weight loss. 4. Diarrhea. 5. Benign hypertension with chronic kidney disease 2. 6. Bradycardia. 7. Physical deconditioning. 8. Osteoarthritis. PLAN: 1. Acute kidney injury. Consult Dr. Corona for Nephrology evaluation and management. Start IV. The patient was given IV bolus in the ER. I will start her on IV normal saline. Give her fluids cautiously as she has a history of hypertension and also has some swelling of the legs. She has chronic lower extremity swelling. BUN has decreased to 26 and creatinine to 1.4. Oral intake is extremely poor. Decrease IV fluids to 75 cc/h. 2. Leukopenia. This is chronic leukopenia, but she is also starting to have thrombocytopenia and leukopenia is also gradually getting worse. Consult Dr. Schilling for Hematology evaluation and management. WBC count is 2.3 Work-up in progress. She is going to have a bone marrow biopsy 3. Weight loss, about 45 pounds, especially most of it in last few weeks. Consult Dr. Dong for GI evaluation and management. 4. Diarrhea. This may be due to her weight loss with her being on colchicine. Discontinue colchicine. 5. Gout. Uric acid 13.9. This may be worse due to her renal insufficiency. We will monitor. Uric acid level is decreased to10.9 6. Physical deconditioning. Continue to monitor. 7. Anemia- T she has anemia of chronic disease. IBC is low. Iron levels are normal. Ferritin is elevated. Vitamin B12 is normal. Continue IV fluids, recheck labs in a.m. COVID-19 test is pending. I will hold most of the blood pressure medications because of the low blood pressure, acute renal failure and also bradycardia. For details, please refer to the we will use SCDs for DVT prophylaxis. She has thrombocytopenia and renal insufficiency. Will not use Lovenox or heparin at this time. orders. Check labs in a.m. If her condition is improving then will discharge her tomorrow. Plan Plan For more details regarding further plans, please refer to the orders. Justifications for Admission Other Justification Nutrition Consultation Dietary Evaluation: Recommendations by RD: Dietary education by RD, Increase Calorie Intake, Protein supplementation Comments: Continue liberlized regular diet at this time. Due to renal- CKD STAGE 2 per renal MD-sending Nepro supplements bid providing 237 ml, 425 kcal, 19.1 g protein/serving discussed with ZAHRA Anderson Expected Outcomes/Goals: improved po intake Interpretation of weight loss: >10% in 6 months Malnutrition Findings: Food and Nutrition Intake (Sev: <50% est energy req 5days Weight Status: Appropriate SEVEN GONZALEZ MD Jan 19, 2020 09:59
[2020-01-19 11:00] VITALS: BP 175/98
[2020-01-19] MEDS: amLODIPine BESYLATE 5 MG TABLET PO SCH (11:45)
[2020-01-19] MEDS: hydrALAZINE 25 MG TABLET PO SCH ×3 (11:46→20:24)
[2020-01-19 15:00] VITALS: BP 162/86
--- NOTE | 2020-01-19 15:11 | PDOC ---
Renal-Progress Notes Subjective Notes Notes NOT EATING WELL History of Present Illness Hx of present illness STABLE Vitals Vitals Vital Signs Date Time Temp Pulse Resp B/P (MAP) Pulse Ox O2 Delivery O2 Flow Rate FiO2 01/19/20 11:46 72 166/86 01/19/20 11:00 98.0 18 100 Room Air 98.0 01/18/20 20:00 2.0 Weight Weight [ ] I.O. Intake and Output Intake and Output 01/19/20 07:00 # Voids 5 Labs Labs Laboratory Tests Test 01/19/20 03:45 Sodium Level 146 mmol/L (136-145) Potassium Level 3.8 mmol/L (3.5-5.1) Chloride Level 113 mmol/L (98-107) Carbon Dioxide Level 17 mmol/L (21-32) Anion Gap 16 (6-14) Blood Urea Nitrogen 26 mg/dL (7-20) Creatinine 1.4 mg/dL (0.6-1.0) Estimated GFR (Cockcroft-Gault) 44.2 Glucose Level 65 mg/dL (70-99) Uric Acid 10.3 mg/dL (2.6-6.0) Calcium Level 8.7 mg/dL (8.5-10.1) Micro Micro Microbiology 01/16/20 Urine Culture - Final, Complete 01/16/20 Antimicrobic Susceptibility - Final, Complete Review of Systems Constitutional: yes: alert, oriented Ears/Nose/Throat: Yes: no symptom reported Eyes: Yes: no symptom reported Pulmonary: Yes no symptom reported Cardiovascular: Yes no symptom reported Gastrointestional: Yes: nausea Genitourinary: Yes: no symptom reported Musculoskeletal: Yes: no symptom reported Skin: Yes no symptom reported Psychiatric/Neurological: Yes: no symptom reported Endocrine: Yes: no symptom reported Physical Exam General Appearance: no apparent distress Skin: warm Heart: S1S2 Abdomen: soft, bowel sounds present Genitourinary: bladder flat Extremities: pulses present Neurology: alert Assessment Assessment IMP HARSHIL-ATN-CR OF 3.7-NYRINTDX-RX DOWN TO 1.4 HYPERNATREMIA CKD STAGE 2-CR OF 1.3 AG MET ACIDOSIS-RESOLVED SEVERE HYPERURICEMIA-NO GOUT-UA DOWN TO 10.3 CHRONIC LEUCOPENIA DEHYDRATION WT LOSS OF UNKNOWN REASON DECONDITIONING PLAN PPN ENC PO ALLOPURINOL D/W ATTENDING WILL FOLLOW LORIE DICK MD Jan 19, 2020 15:11
[2020-01-19 15:13] LABS: COPPER LEVEL 103 ug/dL (72-166)
[2020-01-19 19:20] VITALS: BP 134/94
[2020-01-19] MEDS: ASPIRIN CHEWABLE 81 MG TABLET. PO SCH (20:24)
[2020-01-19 23:12] VITALS: BP 160/87
[2020-01-20] MEDS: IV NORMAL SALINE 1000ML BAG 1,000 ML IV SCH ×2 (01:02→10:26)
[2020-01-20 03:05] VITALS: BP 138/81
[2020-01-20 04:30] LABS: CALCIUM 8.6 mg/dL (8.5-10.1); CREATININE 1.3 mg/dL (0.6-1.0); GFR 48.2; POTASSIUM 3.6 mmol/L (3.5-5.1)
[2020-01-20 04:31] LABS: BASO % 1 % (0-3); EOS % 2 % (0-3); HEMATOCRIT 30.1 % (36.0-47.0); HEMOGLOBIN 9.9 g/dL (12.0-15.5); LYMPH # 0.8 x10^3/uL (1.0-4.8); LYMPH % 39 % (24-48); MEAN CORPUSCULAR HEMOGLOBIN 29 pg (25-35); MEAN CORPUSCULAR HGB CONC 33 g/dL (31-37); MEAN CORPUSCULAR VOLUME 87 fL (79-100); MONO # 0.2 x10^3/uL (0.0-1.1); MONO % 10 % (0-9); NEUT % 48 % (31-73); PLATELET COUNT 69 x10^3/uL (140-400); RED BLOOD COUNT 3.46 x10^6/uL (3.50-5.40); RED CELL DISTRIBUTION WIDTH 14.6 % (11.5-14.5); WHITE BLOOD COUNT 2.1 x10^3/uL (4.0-11.0)
[2020-01-20 04:38] LABS: MAGNESIUM 1.7 mg/dL (1.8-2.4); PHOSPHORUS 2.3 mg/dL (2.6-4.7); URIC ACID 8.8 mg/dL (2.6-6.0)
[2020-01-20 07:00] VITALS: BP 160/88
[2020-01-20] MEDS: ALLOPURINOL 300 MG TABLET. PO SCH (08:05)
[2020-01-20] MEDS: CHOLECALCIFEROL (VITAMIN D3) 1,000 UNIT TABLET PO SCH (08:05)
[2020-01-20] MEDS: PANTOPRAZOLE 40 MG TABLET.DR. PO SCH (08:06)
[2020-01-20] MEDS: amLODIPine BESYLATE 5 MG TABLET PO SCH (08:06)
[2020-01-20] MEDS: hydrALAZINE 25 MG TABLET PO SCH (08:06)
[2020-01-20] MEDS: APIXABAN 5 MG TABLET. PO SCH (08:06)
[2020-01-20 10:42] VITALS: BP 118/76
[2020-01-20] MEDS ORDERED: ALLO300T PO (10:53)
--- NOTE | 2020-01-20 10:55 | DISCH ---
DISCHARGE INSTRUCTIONS Condition on Discharge Condition on Discharge: Stable Activity After Discharge Activity Instructions for Disc: Activity as tolerated Lifting Instructions after Dis: No heavy lifting Driving Instructions after Dis: Do not drive today Weight Bearing Status after Di: As tolerated Diet after Discharge Diet after Discharge: Cardiac Additional Diet Restrictions: Ensure 1 can 3 times a day Checks after Discharge Checks after discharge: Check blood press - daily Contacting the DRPayal after DC Call your doctor for: Concerns you may have Follow-Up Follow up with: Dr. Seven Vila in 4 days. Follow Up With: Dr.Sashi Fraga,SEVEN Bernard MD Jan 20, 2020 10:55
--- NOTE | 2020-01-20 11:04 | PDOC3 ---
IM DISCHARGE SUMMARY Date of Admission Date of Admission Date of Admission: Jan 16, 2020 at 19:12 Date of Discharge Date of Discharge January [birth year] Primary Diagnosis Primary Diagnosis 1. Acute kidney injury with chronic kidney disease 2. With acute tubular necrosis 2. Leukopenia. 3. Weight loss. 4. Diarrhea. 5. Benign hypertension with chronic kidney disease 2. 6. Bradycardia. 7. Physical deconditioning. 8. Osteoarthritis. 9. Pancytopenia 10. Gout Consults Consults Tonie Pina MD; Tai Corona MD; Tino Dong MD Labs Labs Laboratory Tests Test 01/20/20 03:35 White Blood Count 2.1 x10^3/uL (4.0-11.0) L Red Blood Count 3.46 x10^6/uL (3.50-5.40) L Hemoglobin 9.9 g/dL (12.0-15.5) L Hematocrit 30.1 % (36.0-47.0) L Mean Corpuscular Volume 87 fL (79-100) Mean Corpuscular Hemoglobin 29 pg (25-35) Mean Corpuscular Hemoglobin Concent 33 g/dL (31-37) Red Cell Distribution Width 14.6 % (11.5-14.5) H Platelet Count 69 x10^3/uL (140-400) L Neutrophils (%) (Auto) 48 % (31-73) Lymphocytes (%) (Auto) 39 % (24-48) Monocytes (%) (Auto) 10 % (0-9) H Eosinophils (%) (Auto) 2 % (0-3) Basophils (%) (Auto) 1 % (0-3) Neutrophils # (Auto) 1.0 x10^3/uL (1.8-7.7) L Lymphocytes # (Auto) 0.8 x10^3/uL (1.0-4.8) L Monocytes # (Auto) 0.2 x10^3/uL (0.0-1.1) Eosinophils # (Auto) 0.0 x10^3/uL (0.0-0.7) Basophils # (Auto) 0.0 x10^3/uL (0.0-0.2) Sodium Level 147 mmol/L (136-145) H Potassium Level 3.6 mmol/L (3.5-5.1) Chloride Level 114 mmol/L (98-107) H Carbon Dioxide Level 21 mmol/L (21-32) Anion Gap 12 (6-14) Blood Urea Nitrogen 16 mg/dL (7-20) Creatinine 1.3 mg/dL (0.6-1.0) H Estimated GFR (Cockcroft-Gault) 48.2 Glucose Level 82 mg/dL (70-99) Uric Acid 8.8 mg/dL (2.6-6.0) H Calcium Level 8.6 mg/dL (8.5-10.1) Phosphorus Level 2.3 mg/dL (2.6-4.7) L Magnesium Level 1.7 mg/dL (1.8-2.4) L Laboratory Tests 01/20/20 03:35 Laboratory Tests 01/20/20 03:35 Brief hospital course Brief hospital course This 74 years old female, who is well known to me, saw me in the office on 12/27/2019. She has a history of leukopenia, hypertension with chronic kidney disease stage 2, gout. She came to the office for followup and she had recently a dental surgery and had a wisdom tooth removed. She was noted to have lost 29 pounds in about 8 months. However, she stated that most of the weight loss was in the last few weeks and her weight loss was out of proportion to her dental surgery. She had colonoscopy about 5 years ago. Labs were ordered. Her baseline creatinine is from 1.2-1.3 and the creatinine increased to 1.64. She is on multiple blood pressure medications. She was supposed to follow up in a couple of weeks, but she has continued to get weaker. She has lost 15 more pounds to make a total of 45 pounds in last 8 months, but most of it in last few weeks. She has not been eating well. Now, she is starting to get diarrhea. She denies any nausea, vomiting, fever or chills. She does have some congestion and a bad taste in mouth. Mucus is clear. She denies any fever. Because of her multiple medical problems, including weight loss, acute renal failure with creatinine increasing to 3.4 and BUN increasing to 52 from around 22, it was decided to go ahead and admit the patient for further evaluation and management. She was given IV fluids in the Emergency Room. Her WBC count is 2.5, which is the same as the one in the office. Her white count ranges from 2.5-3.5. She has a history of chronic leukopenia. Because of the acute renal failure with chronic kidney disease, weight loss of 45 pounds, most of it in last few weeks, inability to eat much and diarrhea, likely due to colchicine now and profound weakness, the patient was admitted for further evaluation and management. For more details regarding the past history, family history, social history, surgical history and other details, please refer to History and Physical. 1. Acute kidney injury. Consult Dr. Corona for Nephrology evaluation and management. Start IV. The patient was given IV bolus in the ER. I will start her on IV normal saline. Give her fluids cautiously as she has a history of hypertension and also has some swelling of the legs. She has chronic lower extremity swelling. BUN has decreased to 26 and creatinine to 1.4. Oral intake is extremely poor. Decrease IV fluids to 75 cc/h. 2. Leukopenia. This is chronic leukopenia, but she is also starting to have thrombocytopenia and leukopenia is also gradually getting worse. Consult Dr. Schilling for Hematology evaluation and management. WBC count is 2.3 Work-up in progress. Patient also has pancytopenia with thrombocytopenia and anemia. She had a bone marrow biopsy. Results are pending. Because of the thrombocytopenia getting worse I will discontinue apixaban and aspirin for now. 3. Weight loss, about 45 pounds, especially most of it in last few weeks. Consult Dr. Dong for GI evaluation and management. CT scan of abdomen and p dhaval showed diverticulosis but no other significant abnormalities. Renal sonogram shows atrophic kidneys 4. Diarrhea. This may be due to her weight loss with her being on colchicine. Discontinue colchicine. 5. Gout. Uric acid 13.9. This may be worse due to her renal insufficiency. We will monitor. Uric acid level is decreased to10.9. She is started on allopurinol. 6. Physical deconditioning. Continue to monitor. 7. Anemia- she has anemia of chronic disease. TIBC is low. Iron levels are normal. Ferritin is elevated. Vitamin B12 is normal. I will hold most of the blood pressure medications because of the low blood pressure, acute renal failure and also bradycardia. Blood pressure is now elevated and amlodipine and hydralazine has been restarted. We will continue to hold rest of the medications on discharge. Urine culture showed 60,000 bacteria with contamination. Clinically she does not have UTI but I will obtain a straight catheter sample for urinalysis and culture prior to discharge and will follow-up as outpatient. Her dehydration is better but her oral intake is extremely poor. She states that the food just does not taste good. I have strongly encouraged her to eat and also start Ensure 1 can 3 times a day at home. Discharge home. See me in the office in 4 days. Long-term as well as short- term prognosis of this patient is very poor. Follow-up bone marrow biopsy report as outpatient. Patient is advised to follow-up with the events director and marine equipment design engineer as outpatient. For details, please refer to the we will use SCDs for DVT prophylaxis. She has thrombocytopenia and renal insufficiency. Will not use Lovenox or heparin at this time. orders. Medications Medications reviewed and reconciled for discharge. Allergy Allergies Coded Allergies Type Severity Reaction Last Updated Verified Sulfa (Sulfonamide Antibiotics) Allergy Severe 07/01/17 Yes Follow up in 4 days. Comments Discharge Management - 35 minutes. For other details please refer to discharge instructions Justicifation of Admission Dx: Justifications for Admission: Justification of Admission Dx: Yes SEVEN GONZALEZ MD Jan 20, 2020 11:04
[2020-01-20 12:35] LABS: BILIRUBIN,URINE NEGATIVE (NEG); CLARITY,URINE CLEAR; COLOR,URINE YELLOW; NITRITE,URINE NEGATIVE (NEG); PROTEIN,URINE NEGATIVE (NEG-TRACE); UROBILINOGEN,URINE 0.2 mg/dL (0.2 mg/dL)
[2020-01-20 12:44] LABS: BACTERIA,URINE MANY /HPF (0-FEW); HYALINE CASTS, URINE OCCASIONAL /HPF; WBC,URINE 20-40 /HPF (0-4)
--- NOTE | 2020-01-20 14:07 | NUR ---
Pt discharged home with self care. Discharge instructions and prescriptions discussed. Pt verbalized understanding. Pt assisted to wheelchair and was secured in car with family.
--- NOTE | 2020-01-20 14:25 | PDOC ---
Renal-Progress Notes Subjective Notes Notes FEELS WELL History of Present Illness Hx of present illness STABLE Vitals Vitals Vital Signs Date Time Temp Pulse Resp B/P (MAP) Pulse Ox O2 Delivery O2 Flow Rate FiO2 01/20/20 10:42 97.7 86 18 118/76 (90) 97 Room Air 97.7 Weight Weight [ ] I.O. Intake and Output Intake and Output 01/20/20 07:00 Intake Total 5840 ml Balance 5840 ml Intake Oral 840 ml IV Total 5000 ml # Voids 4 Labs Labs Laboratory Tests Test 01/20/20 03:35 01/20/20 11:00 White Blood Count 2.1 x10^3/uL (4.0-11.0) Red Blood Count 3.46 x10^6/uL (3.50-5.40) Hemoglobin 9.9 g/dL (12.0-15.5) Hematocrit 30.1 % (36.0-47.0) Mean Corpuscular Volume 87 fL (79-100) Mean Corpuscular Hemoglobin 29 pg (25-35) Mean Corpuscular Hemoglobin Concent 33 g/dL (31-37) Red Cell Distribution Width 14.6 % (11.5-14.5) Platelet Count 69 x10^3/uL (140-400) Neutrophils (%) (Auto) 48 % (31-73) Lymphocytes (%) (Auto) 39 % (24-48) Monocytes (%) (Auto) 10 % (0-9) Eosinophils (%) (Auto) 2 % (0-3) Basophils (%) (Auto) 1 % (0-3) Neutrophils # (Auto) 1.0 x10^3/uL (1.8-7.7) Lymphocytes # (Auto) 0.8 x10^3/uL (1.0-4.8) Monocytes # (Auto) 0.2 x10^3/uL (0.0-1.1) Eosinophils # (Auto) 0.0 x10^3/uL (0.0-0.7) Basophils # (Auto) 0.0 x10^3/uL (0.0-0.2) Sodium Level 147 mmol/L (136-145) Potassium Level 3.6 mmol/L (3.5-5.1) Chloride Level 114 mmol/L (98-107) Carbon Dioxide Level 21 mmol/L (21-32) Anion Gap 12 (6-14) Blood Urea Nitrogen 16 mg/dL (7-20) Creatinine 1.3 mg/dL (0.6-1.0) Estimated GFR (Cockcroft-Gault) 48.2 Glucose Level 82 mg/dL (70-99) Uric Acid 8.8 mg/dL (2.6-6.0) Calcium Level 8.6 mg/dL (8.5-10.1) Phosphorus Level 2.3 mg/dL (2.6-4.7) Magnesium Level 1.7 mg/dL (1.8-2.4) Urine Collection Type Unknown Urine Color Yellow Urine Clarity Clear Urine pH 5.0 (<5.0-8.0) Urine Specific Misenheimer 1.010 (1.000-1.030) Urine Protein Negative mg/dL (NEG-TRACE) Urine Glucose (UA) Negative mg/dL (NEG) Urine Ketones (Stick) 15 mg/dL (NEG) Urine Blood Negative (NEG) Urine Nitrite Negative (NEG) Urine Bilirubin Negative (NEG) Urine Urobilinogen Dipstick 0.2 mg/dL (0.2 mg/dL) Urine Leukocyte Esterase Small (NEG) Urine RBC 6-10 /HPF (0-2) Urine WBC 20-40 /HPF (0-4) Urine Squamous Epithelial Cells Mod /LPF Urine Bacteria Many /HPF (0-FEW) Urine Hyaline Casts Occasional /HPF Micro Micro Microbiology 01/16/20 Urine Culture - Final, Complete 01/16/20 Antimicrobic Susceptibility - Final, Complete Review of Systems Constitutional: yes: alert, oriented Ears/Nose/Throat: Yes: no symptom reported Eyes: Yes: no symptom reported Pulmonary: Yes no symptom reported Cardiovascular: Yes no symptom reported Gastrointestional: Yes: nausea Genitourinary: Yes: no symptom reported Musculoskeletal: Yes: no symptom reported Skin: Yes no symptom reported Psychiatric/Neurological: Yes: no symptom reported Endocrine: Yes: no symptom reported Physical Exam General Appearance: no apparent distress Skin: warm Heart: S1S2 Abdomen: soft, bowel sounds present Genitourinary: bladder flat Extremities: pulses present Neurology: alert Assessment Assessment IMP HARSHIL-ATN-CR OF 3.3-YFSKZRSY-EY DOWN TO 1.4-ESSENTIALLY RESOLVED HYPERNATREMIA CKD STAGE 2-CR OF 1.3 AG MET ACIDOSIS-RESOLVED SEVERE HYPERURICEMIA-NO GOUT-UA DOWN TO 10.3 CHRONIC LEUCOPENIA DEHYDRATION WT LOSS OF UNKNOWN REASON DECONDITIONING PLAN ENC PO ALLOPURINOL D/W ATTENDING WILL FOLLOW OP D/C PLANS NOTED LORIE DICK MD Jan 20, 2020 14:25
[2020-01-21 15:17] LABS: ALBUM 3.5 g/dL (2.9-4.4); ALPHA 1 0.2 g/dL (0.0-0.4); ALPHA 2 0.5 g/dL (0.4-1.0); BETA 1.4 g/dL (0.7-1.3); GAMMA 1.1 g/dL (0.4-1.8); PROTEIN TOTAL 6.8 g/dL (6.0-8.5); SPEP AG RATIO 1.1 (0.7-1.7)
[2020-01-21 23:09] LABS: GLIA IGA 34 units (0-19); GLIA IGG 5 units (0-19); TRANSGLUTAMINASE IGA AB <2 U/mL (0-3); TRANSGLUTAMINASE IGG AB <2 U/mL (0-5)
== END 2020-01-20 14:00 | disposition home or self-care (01) | DRG 808 ==
LOC: ER 17:39 → ED HOLD 19:12 → 6 SOUTH 21:41 → 4 NORTH 01-18 16:13
PROVIDERS: ADMIT Internal Medicine; ATTEND Internal Medicine
PROC: 07DR3ZX Extraction of Iliac Bone Marrow, Percutaneous Approach, Diagnostic (ICD-10-PCS; principal; 2020-01-18)
DX: D61.818 Other pancytopenia (principal); N17.0 Acute kidney failure with tubular necrosis; E87.0 Hyperosmolality and hypernatremia; E87.2 Acidosis; D69.6 Thrombocytopenia, unspecified; M19.90 Unspecified osteoarthritis, unspecified site; D63.8 Anemia in other chronic diseases classified elsewhere; E86.0 Dehydration; I12.9 Hypertensive chronic kidney disease with stage 1 through stage 4 chronic kidney disease, or unspecified chronic kidney disease; K57.90 Diverticulosis of intestine, part unspecified, without perforation or abscess without bleeding; M10.9 Gout, unspecified; N18.30 Chronic kidney disease, stage 3 unspecified; Z20.828 Contact with and (suspected) exposure to other viral communicable diseases; Z82.49 Family history of ischemic heart disease and other diseases of the circulatory system; Z86.718 Personal history of other venous thrombosis and embolism; Z90.710 Acquired absence of both cervix and uterus; K21.9 Gastro-esophageal reflux disease without esophagitis; Z68.24 Body mass index [BMI] 24.0-24.9, adult; Z88.2 Allergy status to sulfonamides; Z79.899 Other long term (current) drug therapy; Z79.01 Long term (current) use of anticoagulants; R63.4 Abnormal weight loss
CPT/HCPCS: 36415; 38222; 71045; 74176; 76770; 77012; 80048; 80053; 81001; 82525; 82550; 82607; 82668; 82728; 83010; 83036; 83516; 83520; 83540; 83550; 83615; 83735; 83880; 84100; 84165; 84443; 84484; 84550; 85025; 85045; 87077; 87086; 87186; 88184; 88185; 88237; 93005; 96361; 96374; 99152; J2250; J3010; J3490; J7030; Q9966; U0003; 97110-GP; 97116-GP; 97530-GP; 99285-25; G0378